=== PATIENT | male | born 1935 | race Caucasian/White ===

== ENCOUNTER → 2019-04-28 08:00 | Outpatient (REF) | payer MEDICARE, SELFPAY ==
[2019-04-28 11:36] LABS: Mucous, Urine 0 SEEN /hpf (<or=2+); Red Blood Cells-Urine 0 SEEN /hpf (0-5); Squamous Epithelial Cells - UA 0 SEEN /hpf (0-5); White Blood Cells 0 SEEN /hpf (0-5)
[2019-04-28 11:41] LABS: Color, Urine Yellow (Yellow); Glucose, Dipstick Normal (Normal); Ketone-Dipstick 15 mg/dl (Negative); Leukocyte Esterase-Dipstick Negative /ul (Negative); Nitrite-Dipstick Negative (Negative); Occult Blood-Urine Negative /ul (Negative); Protein-Dipstick Negative (Negative); Urine Bilirubin Dipstick Negative (Negative); Urine Clarity Sl. Cloudy (Clear); Urine Urobilinogen 1 mg/dl (Normal)
[2019-04-28 12:05] LABS: Bacteria 4+ /hpf (None Seen)
== END ==
LOC: OLS.BROOKB 08:00
PROVIDERS: Visit Provider Family Medicine
DX: N39.0 Urinary tract infection, site not specified (principal)
CPT/HCPCS: 81001

== ENCOUNTER 2019-04-29 21:16 | Inpatient (IN) | payer MEDICARE, SELFPAY ==
[2019-04-29 21:17] VITALS: BP 151/63; PULSE 73; RESP 15; TEMP 36.8; O2SAT 97; BMI 21.9
--- NOTE | 2019-04-29 21:25 | CT_ITS ---
STUDY: CT BRAIN WITHOUT CONTRAST REASON FOR EXAM: Male, 84 years old. Confusion and dementia RADIATION DOSAGE (If Supplied By Facility): CTDIvol = ( 44.99 ) mGy, DLP = ( 863.60 ) mGycm TECHNIQUE: Transaxial CT imaging of the brain was performed without administration of intravenous contrast material. Individualized dose optimization techniques were used for this CT. COMPARISON: No relevant priors. FINDINGS: Normal soft tissue structures. Normal calvarium. Calcification of cavernous carotids. Moderate atrophy and periventricular white matter ischemic changes.. Normal basal ganglia and thalami. Normal brainstem. Normal cerebellum. There is asymmetrically increased attenuation of the right middle cerebral artery suggesting thrombosis and could be due to acute infarct. There is no intracranial hemorrhage. There are no findings of an acute ischemic infarction. There are postsurgical changes of the orbits. Mucosal thickening of the right maxillary ethmoid and frontal sinuses. Mild mucosal thickening in the left maxillary sinus CT/Brain/Head without Contrast IMPRESSION: Asymmetrically increased attenuation of the right middle cerebral artery suggesting thrombosed vessel and may be seen with acute infarct. MRI would be helpful for more definitive evaluation if indicated Moderate atrophy and periventricular white matter ischemic changes. No evidence for acute bleed Electronically Signed: Dhaval Orourke MD at 22:36 EST , Service support ,
--- NOTE | 2019-04-29 21:26 | EKG12_ITS ---
Test Reason : DYSRHYTHMIA Blood Pressure : / mmHG Vent. Rate : 060 BPM Atrial Rate : 060 BPM P-R Int : 200 ms QRS Dur : 154 ms QT Int : 476 ms P-R-T Axes : 070 -64 038 degrees QTc Int : 476 ms Normal sinus rhythm Right bundle branch block Left anterior fascicular block Bifascicular block Minimal voltage criteria for LVH, may be normal variant Abnormal ECG Confirmed by ANDRIY BELL, SHARAD ([id number]), video effects editor RICHAR RUSS ([id number]) on 04/30/2019 11:06:45 AM Referred By: Percy Kumar Confirmed By:SHARAD ASHRAF MD
--- NOTE | 2019-04-29 21:29 | ED.RN ---
NO OLD EKGS IN MUSE
--- NOTE | 2019-04-29 21:41 | ED.VIS.GEN ---
History of Present Illness Chief Complaint: Mental Status Change Informant: Patient Onset: Days Context: Gradual Onset Timing: Continuous Current Severity: Moderate Maximum Severity: Moderate Narrative: The patient presents to the emergency department with confusion. The patient is an 84-year-old male with history of dementia with behavioral disturbance. He is currently at the [facility] dementia unit. He was admitted to a psychiatric facility in early March. He was discharged to [facility] on April 01. They have been titrating his medications. He has been on Depakote and olanzapine. Apparently over the past week, he has been more confused and having difficulty with treatments. He is also had difficulty feeding himself, dressing himself, and has an unstable gait. He was sent in for further evaluation. The patient gives no history. Prior similar symptoms: No Recent Illness/Hospitalization: No Past Medical History - Allergies and Home Meds Allergies/Adverse Reactions: Allergies No Known Allergies Allergy (Verified 04/29/19 22:13) Primary Care Physician: NOT,DEFINED [NON-STAFF] - Prior records reviewed: Yes Past Medical History: - - Dementia, hypertension Surgical History: noncontributory Smoking Status: Unknown if ever smoked Review of Systems ROS: Unable to Obtain Physical Exam Vital Signs/Narrative: Vital Signs Temp Pulse Resp BP Pulse Ox 04/29/19 21:17 98.2 F 73 15 151/63 H 97 General: Well nourished, Well developed, No Acute Distress Head: Normocephalic, Atraumatic Eyes: Perrl, EOMI ENT: Moist mucous membranes, No rhinorrhea Neck: Supple, Nontender Cardiovascular: Regular rate, Regular rhythm, No murmurs Respiratory: No distress, CTA bilaterally, Chest nontender Abdomen: Soft, Nontender, Nondistended, Normal bowel sounds Back: Nontender, Normal Inspection Extremities: Nontender, No edema Skin: Normal color, No rash Neurological: Alert, Cranial nerves II-XII grossly intact, Normal Strength, Normal Sensation Psychological: Normal affect, Normal Mood Diagnostic/Tx/Re-eval Clinical Impression(s) from Imaging Studies Brain CT 04/29/19 21:25 IMPRESSION: Asymmetrically increased attenuation of the right middle cerebral artery suggesting thrombosed vessel and may be seen with acute infarct. MRI would be helpful for more definitive evaluation if indicated Moderate atrophy and periventricular white matter ischemic changes. No evidence for acute bleed Electronically Signed: Dhaval Orourke MD at 22:36 EST , Service support , Abnormal Lab Results 04/29/19 04/29/19 04/29/19 22:00 22:05 22:05 WBC 7.4 RBC 4.01 L Hgb 12.4 L Hct 38.0 L MCV 94.8 H MCH 30.9 MCHC 32.6 RDW Std Deviation 43.3 RDW Coeff of [place] 12.6 Plt Count 294 MPV 8.9 Immature Gran % (Auto) 0.400 Neut % (Auto) 75.6 H Lymph % (Auto) 13.6 L [place] % (Auto) 9.6 Eos % (Auto) 0.5 Baso % (Auto) 0.3 Absolute Neuts (auto) 5.6 Absolute Lymphs (auto) 1.00 Nucleated RBC % 0 Sodium 141 Potassium 4.0 Chloride 105 Carbon Dioxide 31.0 Anion Gap 5 BUN 25 H Creatinine 1.18 Estim Creat Clear Calc 50.11 Est GFR (MDRD) Af Amer 75 Est GFR (MDRD) Non-Af 62 BUN/Creatinine Ratio 21.2 H Glucose 97 Calcium 8.8 Total Bilirubin 0.80 AST 16 ALT 15 L Alkaline Phosphatase 52 Ammonia Total Protein 6.7 Albumin 3.1 L Globulin 3.6 Albumin/Globulin Ratio 0.9 Urine Color Yellow Urine Clarity Cloudy Urine pH 5.0 Ur Specific [place] 1.025 Urine Protein 30 H Urine Glucose (UA) Normal Urine Ketones 15 H Urine Occult Blood 250 H Urine Nitrite Negative Urine Bilirubin Negative Urine Urobilinogen 1 H Ur Leukocyte Esterase 500 H Urine RBC 10-25 SEEN Urine WBC 25-50 SEEN Ur Squamous Epith Cells 0 SEEN Urine Bacteria RARE Urine Mucus 1+ Valproic Acid 04/29/19 04/29/19 22:05 22:05 WBC RBC Hgb Hct MCV MCH MCHC RDW Std Deviation RDW Coeff of [place] Plt Count MPV Immature Gran % (Auto) Neut % (Auto) Lymph % (Auto) [place] % (Auto) Eos % (Auto) Baso % (Auto) Absolute Neuts (auto) Absolute Lymphs (auto) Nucleated RBC % Sodium Potassium Chloride Carbon Dioxide Anion Gap BUN Creatinine Estim Creat Clear Calc Est GFR (MDRD) Af Amer Est GFR (MDRD) Non-Af BUN/Creatinine Ratio Glucose Calcium Total Bilirubin AST ALT Alkaline Phosphatase Ammonia < 10.0 L Total Protein Albumin Globulin Albumin/Globulin Ratio Urine Color Urine Clarity Urine pH Ur Specific [place] Urine Protein Urine Glucose (UA) Urine Ketones Urine Occult Blood Urine Nitrite Urine Bilirubin Urine Urobilinogen Ur Leukocyte Esterase Urine RBC Urine WBC Ur Squamous Epith Cells Urine Bacteria Urine Mucus Valproic Acid 44 L - Rhythm Strip Rhythm Strip: Sinus Rhythm Rate: 80 Ectopy: None - Medical Decision Making The patient presents with increasing confusion and weakness. He does have some difficulty with word finding, but his NIH is only 1 for this. He has no focal neurologic symptoms. This is more metabolic in nature as it does wax and wane. Broad metabolic work-up was pursued. The patient does have evidence of urinary tract infection. Otherwise, screening labs are unremarkable. CT of the head showed questionable thrombosis of the right MCA, but the patient does not have any significant stroke symptoms. He is also comfort care only. CTA was obtained. It does show occlusion of the carotid, but there is reconstitution distally. There is no acute occlusion there. There was also findings of an occlusion in the subclavian artery. The patient does not have pain. At this point, I do feel that he should be admitted for IV antibiotics and consultation with physical therapy and Occupational Therapy. He has had increasing falls at his facility. He will likely need a higher level of care. I did speak with the patient's daughter, Rachel, who is also his healthcare power of flatwork finisher hand. She did confirm that he would not want anything invasive or aggressive done. She states that he has had a vascular surgery before and reoccluded his surgery. I do feel that this is likely a chronic finding on his CT. Based on the family's wishes and the fact that he would not want any aggressive or invasive treatment I do feel that he can safely be admitted here especially given his goals of care. Impression 1. Acute delirium 2. Urinary tract infection ED Disposition - Plan for ED Patient: Referrals: NOT,DEFINED [NON-STAFF] -
[2019-04-29 22:16] LABS: Squamous Epithelial Cells - UA 0 SEEN /hpf (0-5)
[2019-04-29 22:19] LABS: Absolute Neutrophil Count 5.6 X10^3/uL (2.0-7.7); Basophil# 0.02 X10^3/uL; Basophil% 0.3 % (0-1); Eosinophil# 0.04 X10^3/uL; Eosinophils% 0.5 % (0-5); Hemoglobin 12.4 g/dL (13.0-16.5); Lymphocyte % 13.6 % (19-41); Mean Corp Hgb Conc 32.6 g/dL (32-36); Mean Corpuscular Hgb 30.9 pg (27.0-32.0); Mean Corpuscular Volume 94.8 fL (80-94); Mean Platelet Vol. 8.9 fl (6.2-12.0); Monocyte# 0.71 X10^3/uL; Monocyte% 9.6 % (0-10); NRBC Flagged by Analyzer 0 % (0-5); Neutrophil # 5.57 X10^3/uL (2.7-7.7); Neutrophil % 75.6 % (47-70); Platelet Count 294 K/mm3 (150-450); RBC Distribution Width CV 12.6 % (11.6-14.6); RBC Distribution Width SD 43.3 fl (35.1-43.9); Red Blood Count 4.01 M/mm3 (4.6-6.2); White Blood Count 7.4 K/mm3 (4.4-11.0)
[2019-04-29 22:22] LABS: Color, Urine Yellow (Yellow); Glucose, Dipstick Normal (Normal); Ketone-Dipstick 15 mg/dl (Negative); Leukocyte Esterase-Dipstick 500 /ul (Negative); Nitrite-Dipstick Negative (Negative); Occult Blood-Urine 250 /ul (Negative); Protein-Dipstick 30 mg/dl (Negative); Specific Gravity, Urine 1.025 (1.002-1.030); Urine Bilirubin Dipstick Negative (Negative); Urine Clarity Cloudy (Clear); Urine Urobilinogen 1 mg/dl (Normal)
[2019-04-29 22:30] LABS: Red Blood Cells-Urine 10-25 SEEN /hpf (0-5)
[2019-04-29 22:31] LABS: Bacteria RARE /hpf (None Seen); Mucous, Urine 1+ /hpf (<or=2+); White Blood Cells 25-50 SEEN /hpf (0-5)
--- NOTE | 2019-04-29 22:40 | CT_ITS ---
STUDY: CTA HEAD AND NECK WITH CONTRAST REASON FOR EXAM: Male, 84 years old. Confusion, possible right MCA occlusion on prior head CT RADIATION DOSAGE (If Supplied By Facility): CTDIvol = ( 17.47 ) mGy, DLP = ( 826.46 ) mGycm TECHNIQUE: CT angiography was performed with a multi-detector CT scanner. Data acquisition was obtained from the skull base through the vertex following intravenous administration of IV 100mL [id number]-370. MIP images were reconstructed from the axial data set. Post-processing of the angiographic images was performed, with multiplanar reformation and 3D reconstruction. Individualized dose optimization techniques were used for this CT. COMPARISON: CT same day FINDINGS: Chronic interstitial lung changes without superimposed acute alveolar disease. The petrous and cavernous segments of the left ICA are occluded. There is reconstitution of flow at the level of the supraclinoid segment. Normal right A1 segments of the anterior cerebral artery. Normal left A1 segments of the anterior cerebral artery. Normal intact anterior communicating artery (ACOM). Normal bilateral A2 segments of the anterior cerebral arteries. Normal right M1 and M2 segments of the middle cerebral arteries, with a normal M1 bifurcation. Normal left M1 and M2 segments of the middle cerebral arteries, with a normal M1 bifurcation. There is non-visualization of the right posterior communicating artery (PCOM). There is non-visualization of the left posterior communicating artery (PCOM). Normal bilateral vertebral arteries. Normal basilar artery with a normal basilar bifurcation. The visualized bilateral superior cerebellar (SCA) arteries are normal. Normal bilateral P1, P2 and visualized P3 segments of the posterior cerebral arteries. There is no demonstrated aneurysm of the [place] of [place]. Bilateral maxillary and right frontal sinus disease. Bilateral lens replacements. AORTIC ARCH: Normal visualized aortic arch. Heavy concentric mixed soft and calcified plaque is present in the proximal right subclavian artery with a focal near occlusion, with residual lumen diameter of 2 mm and poststenotic diameter 14 mm. RIGHT CAROTID ARTERIES: Normal right common carotid artery (CCA). Heavy concentric calcified plaque in the carotid bulb and proximal ICA with an associated stenosis of less than 50%.. Normal visualized cervical portion of the right internal carotid artery. Normal origin of the right external carotid artery (ECA). LEFT CAROTID ARTERIES: Normal left common carotid artery (CCA). Heavy concentric mixed soft and calcified plaque is present in the carotid bulb. There is occlusion of the left internal carotid artery in the neck. Normal origin of the left external carotid artery (ECA). VERTEBRAL ARTERIES: Normal bilateral vertebral arteries. Median sternotomy wires. Pulmonary emphysema. 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 This occlusion extends to the petrous and cavernous segments of the intracranial ICA on the left. There is reconstitution of flow at the level of the supraclinoid segment. No evidence of occlusion of the right MCA. 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 Electronically Signed: Maksim Gandhi MD at 23:35 EST Tel , Service support ,
[2019-04-29 22:42] LABS: Ammonia < 10.0 umol/L (11-32)
[2019-04-29 22:43] LABS: Valproic Acid (Depakene) Level 44 ug/mL (50-100)
[2019-04-29 22:44] LABS: ALB/GLOB Ratio 0.9 RATIO (0.9-2.4); AST(SGOT) 16 U/L (15-37); Alanine Aminotransfer ALT/SGPT 15 U/L (16-61); Albumin, Serum 3.1 g/dL (3.2-5.0); Alkaline Phosphatase 52 U/L (45-117); Anion Gap 5 (5-15); BUN 25 mg/dL (7-18); BUN/Creat Ratio 21.2 RATIO (10-20); Calcium,Total 8.8 mg/dL (8.5-10.1); Chloride 105 mmol/L (98-107); Creatinine, Serum 1.18 mg/dL (0.70-1.30); EST Glomerular Filtration Rate 62 mL/min (>60); Est Glom Filt Rate - Afr Amer 75 mL/min (>60); Estimated Creatinine Clearance 50.11 ml/min; Globulin 3.6 g/dL (2.2-4.2); Glucose 97 mg/dL (74-106); Protein, Total 6.7 g/dL (6.4-8.2); Sodium Level 141 mmol/L (136-145)
[2019-04-29 23:00] VITALS: BP 170/62; PULSE 63; RESP 20; O2SAT 96
--- NOTE | 2019-04-29 23:40 | HP.PCM_ITS ---
Problem List (1) Acute encephalopathy Status: Acute (2) UTI (urinary tract infection) Status: Acute (3) CVA (cerebral vascular accident) Status: Acute History of Present Illness Date of Admission: 04/29/19 Chief Complaint: increased confusion The patient is a 84 year old M with a significant history of hypertension; CAD status post CABG; carotid artery disease status post carotid endarterectomy and dementia who lives at a behavioral unit at the [facility] presenting with increased confusion. Recently patient had his psych medication adjusted because of confusion. At the Emergency department brain CT was remarkable for a probable acute infarct; and head and neck CTA showed occlusion of entire left ICA. Further his urinalysis was abnormal. Past Medical History Medical History: Medical History (Last Reviewed 04/30/19 @ 04:33 by Percy Kumar MD) CAD (coronary artery disease) I25.10 HTN (hypertension) I10 Allergies No Known Allergies Allergy (Verified 04/29/19 22:13) Home Medications: Ambulatory Orders Medication Instructions Recorded Aspirin 81 mg PO DAILY 04/29/19 Divalproex Sprinkles [Depakote 250 mg PO TID 04/29/19 Sprinkles] Hydrochlorothiazide 25 mg PO DAILY 04/29/19 Lorazepam 0.5 mg PO Q6H PRN PRN 04/29/19 Melatonin [Melatin] 6 mg PO QHS 04/29/19 Olanzapine 1 tab PO QHS 04/29/19 Risperidone 1 tab PO BID 04/29/19 Acetaminophen [Tylenol] 650 mg PO Q4H PRN 04/30/19 Lorazepam [Ativan] 1 mg PO TID PRN PRN 04/30/19 Metoprolol(XL)Succ [Toprol Xl 50 mg PO DAILY 04/30/19 (Beta Vishal)] Surgical History: coronary bypass surgery, - - Carotid endarterectomy Lives: [facility] Smoking Status: Unknown if ever smoked - *Family History Maternal History Items: - - Fairly healthy maternal medical history. Her mother at about age 97. Paternal History Items: Heart Disease Review of Systems Constitutional: Denies: Chills, Fever, Weight Change HEENT: Denies: Head Aches, Sinus Congestion, Sinus Drainage Cardiovascular: Denies: Chest Pain, Palpitations Respiratory: Denies: Cough, Shortness of breath at rest, Sputum production Gastrointestinal: Denies: Abdominal Pain, Nausea, Vomiting Genitourinary: Denies: Dysuria Musculoskeletal: Denies: Joint Pain, Joint Tenderness Skin: Denies: Rash, Wounds Neurological: Reports: Confusion. Denies: Focal weakness, Numbness, Tingling Psychiatric: Denies: Homicidal Ideations, Suicidal Ideations Hematologic/ Lymphatic: Denies: Easy Bruising, Easy Bleeding VTE Information - Inpt Only VTE Present on Admission: No VTE Mechan Device Prophylaxis: None VTE Pharm Prophylaxis ordered?: Yes Patient Problems: Active and Suspected Problems (Last Updated 04/30/19 @ 01:35 by Percy Kumar MD) Acute encephalopathy (Acute) UTI (urinary tract infection) (Acute) CVA (cerebral vascular accident) (Acute) - Physical Exam Vitals/I&O's: Vital Signs Temp Pulse Resp BP Pulse Ox 98.2 F 63 20 H 170/62 H 96 04/29/19 21:17 04/29/19 23:00 04/29/19 23:00 04/29/19 23:00 04/29/19 23:00 Oxygen Delivery Method Room Air Weight: 77.4 kg Body Mass Index (BMI) 21.9 Intake and Output for Last 24 Hours 04/27/19 04/28/19 04/29/19 23:59 23:59 23:59 Intake Total 500 / 500 Balance 500 / 500 General: Alert, Confused HEENT: Atraumatic, EOMI, Normocephalic, - Neck: Supple, Trachea Midline Lungs: Clear to auscultation, Normal air movement, No rhonchi, No wheeze, No rales Cardiovascular: Regular rate, Regular Rhythm, Normal S1, Normal S2, No murmurs Abdomen: Bowel Sounds Present, Soft, Non Tender Extremities: Capillary Refill Less than 3 Seconds, Edema Skin: No rashes, No breakdown Musculoskeletal: No Tenderness to Palpation of Joints or Extremities Neurological: Cranial nerves II-XII grossly intact Psych/Mental Status: Normal Affect, Appropriate Laboratory Results 04/29/19 22:00: Urine Color Yellow, Urine Clarity Cloudy, Urine pH 5.0, Ur Specific [place] 1.025, Urine Protein 30 H, Urine Glucose (UA) Normal, Urine Ketones 15 H, Urine Occult Blood 250 H, Urine Nitrite Negative, Urine Bilirubin Negative, Urine Urobilinogen 1 H, Ur Leukocyte Esterase 500 H, Urine RBC 10-25 SEEN, Urine WBC 25-50 SEEN, Ur Squamous Epith Cells 0 SEEN, Urine Bacteria RARE, Urine Mucus 1+ 04/29/19 22:05: WBC 7.4, RBC 4.01 L, Hgb 12.4 L, Hct 38.0 L, MCV 94.8 H, MCH 30.9, MCHC 32.6, RDW Std Deviation 43.3, RDW Coeff of [place] 12.6, Plt Count 294, MPV 8.9, Immature Gran % (Auto) 0.400, Neut % (Auto) 75.6 H, Lymph % (Auto) 13.6 L, [place] % (Auto) 9.6, Eos % (Auto) 0.5, Baso % (Auto) 0.3, Absolute Neuts (auto) 5.6, Absolute Lymphs (auto) 1.00, Nucleated RBC % 0 04/29/19 22:05: Sodium 141, Potassium 4.0, Chloride 105, Carbon Dioxide 31.0, Anion Gap 5, BUN 25 H, Creatinine 1.18, Estim Creat Clear Calc 50.11, Est GFR (MDRD) Af Amer 75, Est GFR (MDRD) Non-Af 62, BUN/Creatinine Ratio 21.2 H, Glucose 97, Calcium 8.8, Total Bilirubin 0.80, AST 16, ALT 15 L, Alkaline Phosphatase 52, Total Protein 6.7, Albumin 3.1 L, Globulin 3.6, Albumin/Globulin Ratio 0.9 04/29/19 22:05: Valproic Acid 44 L 04/29/19 22:05: Ammonia < 10.0 L Current Medications Ceftriaxone Sodium (Rocephin) 1 gm in 50 mls @ 100 mls/hr IV X1 ONE Stop: 04/29/19 23:59 Assessment/Plan All Active Problems (Last Updated 04/30/19 @ 01:35 by Percy Kumar MD) Acute encephalopathy (Acute) UTI (urinary tract infection) (Acute) CVA (cerebral vascular accident) (Acute) The patient is a 84 year old M with a significant history of hypertension; CAD status post CABG; carotid artery disease status post carotid endarterectomy and dementia who lives at a behavioral unit at the [facility] presenting with increased confusion; and found to have radiographic suggestive of acute infarct and also with abnormal urinalysis Acute encephalopathy Ammonia is unremarkable Likely secondary to UTI and CVA. Treatment as below. Acute UTI Patient with confusion and abnormal urinalysis. Received ceftriaxone at the emergency department. Continue ceftriaxone. Follow urine cultures. Acute stroke Brain CT showed asymmetrical increased attenuation of the right middle cerebral artery suggesting thrombosed vessel and suggestive of acute infarct. Head and neck CT showed occlusion of the entire left ICA in the neck. Emergency depa rtment doctor discussed the case with Rachel Gallegos, daughter, CHRISTOPHER ([phone]) who did not want patient transferred to a tertiary institution as the patient would not want any vascular interventions. Hospitalist also discussed the case with Kaylene Gallegos who confirmed that patient is a DNR CC and patient should be treated only medically. Frequent NIH We will continue patient on home aspirin and will start patient on atorvastatin. Permissive hypertension with labetalol. We will get an echocardiogram. MRI not ordered at this time since a CT head and CTA head and neck is already suggestive of acute infarct. Permissive hypertension with labetalol as needed. Hold hydrochlorothiazide and metoprolol. PT OT and speech therapy to work with patient. N.p.o. until patient passes swallow eval. Psychotic disorder Olanzapine; risperidone; Depakote and Lorazepam continued DVT prophylaxis Subcutaneous Lovenox Code Visit Inpatient E&M: 43404 Init Hosp L3
[2019-04-29] MEDS: Ceftriaxone 1 GM/50 ML BAG IV (23:47)
[2019-04-30] VITALS (11 sets, daily range): BP systolic 114–146; BP diastolic 54–79; PULSE 59–97; RESP 14–18; TEMP 36.4–36.8; O2SAT 94–99; BMI 19.1
--- NOTE | 2019-04-30 01:30 | VDLE_ITS ---
Reason For Study: Swelling RIGHT LEFT GSV is normal. GSV is normal. CFV is compressible, spontaneous, phasic, CFV is compressible, spontaneous, phasic, competent and demonstrates normal competent, and demonstrates normal augmentation. augmentation. FV is compressible, spontaneous, phasic, FV is compressible, spontaneous, phasic, competent and demonstrates normal competent and demonstrates normal augmentation. augmentation. POP V is compressible, spontaneous, phasic, POP V is compressible, spontaneous, phasic, competent and demonstrates normal competent and demonstrates normal augmentation. augmentation. T/P Trunk is compressible. T/P Trunk is compressible. PTV is compressible. PTV is compressible. RT PerV is compressible. LT PerV is compressible. Procedure Exam performed portable in patient room. A preliminary report was called and/or faxed to [facility] Nurse. Interpretation Summary No evidence for acute deep venous thrombosis bilateral lower extremities with patent and compressible bilateral great saphenous veins. Ordering Physician: Percy Kumar Referring Physician: Ericka Person M.D. Performed By: Shirley Osei RVT
--- NOTE | 2019-04-30 01:35 | ED.RN ---
[facility] UPDATED ABOUT PT AT [phone].
[2019-04-30] MEDS: LORazepam 0.5 MG Tablet 1 MG PO (02:01)
[2019-04-30] MEDS: Atorvastatin Calcium 40 MG Tablet PO ×2 (02:02→22:00)
[2019-04-30] MEDS: Divalproex Sodium 125 MG SPRINKLE 250 MG PO ×2 (06:16→22:00)
[2019-04-30 06:34] LABS: Absolute Neutrophil Count 5.1 X10^3/uL (2.0-7.7); Basophil# 0.03 X10^3/uL; Basophil% 0.4 % (0-1); Eosinophil# 0.07 X10^3/uL; Hematocrit 38.3 % (40-54); Hemoglobin 12.5 g/dL (13.0-16.5); Lymphocyte % 14.5 % (19-41); Mean Corp Hgb Conc 32.6 g/dL (32-36); Mean Corpuscular Hgb 30.6 pg (27.0-32.0); Mean Corpuscular Volume 93.6 fL (80-94); Mean Platelet Vol. 9.6 fl (6.2-12.0); Monocyte% 10.2 % (0-10); NRBC Flagged by Analyzer 0 % (0-5); Neutrophil # 5.06 X10^3/uL (2.7-7.7); Neutrophil % 73.5 % (47-70); POSITIVE COUNT YES; Platelet Count 267 K/mm3 (150-450); RBC Distribution Width CV 12.7 % (11.6-14.6); RBC Distribution Width SD 43.6 fl (35.1-43.9); Red Blood Count 4.09 M/mm3 (4.6-6.2); White Blood Count 6.9 K/mm3 (4.4-11.0)
[2019-04-30 06:37] LABS: Differential Indicated SCAN CRITERIA MET
[2019-04-30 06:57] LABS: Anion Gap 5 (5-15); BUN 18 mg/dL (7-18); BUN/Creat Ratio 22.6 RATIO (10-20); Calcium,Total 8.5 mg/dL (8.5-10.1); Chloride 106 mmol/L (98-107); Cholesterol 149 mg/dL (200); EST Glomerular Filtration Rate 98 mL/min (>60); Est Glom Filt Rate - Afr Amer 119 mL/min (>60); Estimated Creatinine Clearance 71.52 ml/min; Glucose 87 mg/dL (74-106); High Density Lipoprotein 40 mg/dL; Potassium 3.9 mmol/L (3.5-5.1); Sodium Level 140 mmol/L (136-145); Triglycerides 105 mg/dL; Very Low Density Lipoprotein 21 mg/dL (5-40)
[2019-04-30 07:11] LABS: Differential Comment SCANNED
[2019-04-30] MEDS: Enoxaparin 40 MG/0.4 ML Syringe SC (10:18)
--- NOTE | 2019-04-30 16:51 | PCM.PROGNOTE ---
Subjective: Patient was seen and examined today, he was admitted yesterday for encephalopathy and cystitis, at the time my examination this afternoon, patient appears calm and he does not have any agitation. He remains confused. - Physical Exam Vitals/I&O's: Vital Signs Temp Pulse Resp BP Pulse Ox 97.8 F 69 16 114/69 96 04/30/19 14:00 04/30/19 15:16 04/30/19 14:00 04/30/19 14:00 04/30/19 14:00 Oxygen Delivery Method Room Air Weight: 74.9 kg Body Mass Index (BMI) 19.1 Intake and Output for Last 24 Hours 04/28/19 04/29/19 04/30/19 23:59 23:59 23:59 Intake Total 500 / 500 150 / 150 Balance 500 / 500 150 / 150 General: Alert, Cooperative, No apparent distress, Confused HEENT: Atraumatic, PERRLA, EOMI, Normocephalic Oral: Moist Mucosa Neck: Supple, Trachea Midline, Thyroid Normal Size and Texture Lungs: Clear to auscultation, Normal air movement, No rhonchi, No wheeze, No rales Cardiovascular: Regular rate, Regular Rhythm, Normal S1, Normal S2, No murmurs, PMI Normal, No rub noted Abdomen: Bowel Sounds Present, Soft, Non Tender Extremities: No clubbing, No cyanosis, No edema, Capillary Refill Less than 3 Seconds Skin: No rashes, No breakdown Musculoskeletal: No Tenderness to Palpation of Joints or Extremities Neurological: Cranial nerves II-XII grossly intact, Neuro grossly intact, Sensory exam intact to light touch and pain Psych/Mental Status: - - Patient is alert but confused, he does not appear anxious or agitated at this time Laboratory Results 04/29/19 22:00: Urine Color Yellow, Urine Clarity Cloudy, Urine pH 5.0, Ur Specific [place] 1.025, Urine Protein 30 H, Urine Glucose (UA) Normal, Urine Ketones 15 H, Urine Occult Blood 250 H, Urine Nitrite Negative, Urine Bilirubin Negative, Urine Urobilinogen 1 H, Ur Leukocyte Esterase 500 H, Urine RBC 10-25 SEEN, Urine WBC 25-50 SEEN, Ur Squamous Epith Cells 0 SEEN, Urine Bacteria RARE, Urine Mucus 1+ 04/29/19 22:05: WBC 7.4, RBC 4.01 L, Hgb 12.4 L, Hct 38.0 L, MCV 94.8 H, MCH 30.9, MCHC 32.6, RDW Std Deviation 43.3, RDW Coeff of Calixto 12.6, Plt Count 294, MPV 8.9, Immature Gran % (Auto) 0.400, Neut % (Auto) 75.6 H, Lymph % (Auto) 13.6 L, [place] % (Auto) 9.6, Eos % (Auto) 0.5, Baso % (Auto) 0.3, Absolute Neuts (auto) 5.6, Absolute Lymphs (auto) 1.00, Nucleated RBC % 0 04/29/19 22:05: Sodium 141, Potassium 4.0, Chloride 105, Carbon Dioxide 31.0, Anion Gap 5, BUN 25 H, Creatinine 1.18, Estim Creat Clear Calc 50.11, Est GFR (MDRD) Af Amer 75, Est GFR (MDRD) Non-Af 62, BUN/Creatinine Ratio 21.2 H, Glucose 97, Calcium 8.8, Total Bilirubin 0.80, AST 16, ALT 15 L, Alkaline Phosphatase 52, Total Protein 6.7, Albumin 3.1 L, Globulin 3.6, Albumin/Globulin Ratio 0.9 04/29/19 22:05: Valproic Acid 44 L 04/29/19 22:05: Ammonia < 10.0 L 04/30/19 05:55: WBC 6.9, RBC 4.09 L, Hgb 12.5 L, Hct 38.3 L, MCV 93.6, MCH 30.6, MCHC 32.6, RDW Std Deviation 43.6, RDW Coeff of Calixto 12.7, Plt Count 267, MPV 9.6, Immature Gran % (Auto) 0.400, Neut % (Auto) 73.5 H, Lymph % (Auto) 14.5 L, [place] % (Auto) 10.2 H, Eos % (Auto) 1.0, Baso % (Auto) 0.4, Absolute Neuts (auto) 5.1, Absolute Lymphs (auto) 1.00, Nucleated RBC % 0, Differential Comment SCANNED 04/30/19 05:55: Sodium 140, Potassium 3.9, Chloride 106, Carbon Dioxide 29.0, Anion Gap 5, BUN 18, Creatinine 0.80, Estim Creat Clear Calc 71.52, Est GFR (MDRD) Af Amer 119, Est GFR (MDRD) Non-Af 98, BUN/Creatinine Ratio 22.6 H, Glucose 87, Calcium 8.5, Triglycerides 105, Cholesterol 149, LDL Cholesterol 88, VLDL Cholesterol 21, HDL Cholesterol 40 Current Medications Acetaminophen (Tylenol) 650 mg PO Q6H PRN PRN PRN Reason: Pain Score 1-3/Temp > 100.7 F Aspirin (Aspirin, Baby) 81 mg PO DAILYCM [facility] Last Admin: 04/30/19 10:13 Dose: Not Given Documented by: Atorvastatin Calcium (Lipitor) 40 mg PO QHS [facility] Last Admin: 04/30/19 02:02 Dose: 40 mg Documented by: Divalproex Sodium (Depakote Sprinkles) 250 mg PO TID [facility] Last Admin: 04/30/19 13:37 Dose: Not Given Documented by: Enoxaparin Sodium (Lovenox) 40 mg SC DAILY [facility] Last Admin: 04/30/19 10:18 Dose: 40 mg Documented by: Glucagon () 1 mg IM .X1 PRN PRN Reason: Hypoglycemia Ceftriaxone Sodium (Rocephin) 1 gm in 50 mls @ 100 mls/hr IV Q24H [place] Sodium Chloride () 250 mls @ 15 mls/hr IV .[id number] PRN PRN Reason: Saline Flush Dextrose (Dextrose 10%-Water) 250 mls @ 999 mls/hr IV X1 PRN; Protocol PRN Reason: HYPOGLYCEMIA Labetalol HCl (Trandate) 10 mg IV Q10M PRN PRN Reason: MAINTAIN BP < 220/120 Stop: 05/01/19 00:49 Lorazepam (Ativan) 0.5 mg PO Q6H PRN PRN PRN Reason: ANXIETY Lorazepam (Ativan) 1 mg PO QHS PRN PRN PRN Reason: ANXIETY Last Admin: 04/30/19 02:01 Dose: 1 mg Documented by: Melatonin (Melatonin) 6 mg PO QHS [facility] Olanzapine (Zyprexa Zydis) 5 mg PO QHS [facility] Ondansetron HCl (Zofran) 4 mg IV Q8H PRN PRN PRN Reason: NAUSEA/VOMITING Risperidone (Risperdal) 0.5 mg PO BID [facility] Last Admin: 04/30/19 10:13 Dose: Not Given Documented by: Sodium Chloride () 10 - 40 ml IV UD PRN PRN Reason: SALINE FLUSH Medical Necessity - Tobacco Use Smoking Status: Unknown if ever smoked Assessment/Plan All Active Problems (Last Reviewed 04/30/19 @ 04:33 by Percy Kumar MD) Acute encephalopathy (Acute) UTI (urinary tract infection) (Acute) CVA (cerebral vascular accident) (Acute) #1 Alzheimer's dementia with behavioral disturbances-etiology unclear at this time, continue present care, I do not feel the patient has had an acute stroke #2 possible urinary tract infection-urine cultures pending at this time, continue IV antibiotics for now #3 essential hypertension I do not feel patient has an encephalopathic process at this time Code Visit Inpatient E&M: 10161 Subs Hosp L2
[2019-04-30] MEDS: LORazepam 0.5 MG Tablet PO (19:33)
[2019-04-30] MEDS: RisperiDONE 0.5 MG Tablet PO (21:59)
[2019-04-30] MEDS: MELATONIN 3 MG TABLET 6 MG PO (21:59)
[2019-04-30] MEDS: OLANZapine 5 MG/TAB TAB.RAPDIS PO (22:00)
[2019-04-30] MEDS: Ceftriaxone 1 GM/50 ML BAG IV (22:00)
[2019-05-01 03:03] VITALS: PULSE 60; RESP 16; TEMP 36.5; O2SAT 97
--- NOTE | 2019-05-01 04:43 | NURSING ---
PT'S SHEETS WERE WET W/URINE. ATTEMPTED TO APPLY INCONT PROTOCOL. PT BECAME COMBATIVE, ATTEMPTED TO HIT STAFF W/TELE MONITOR, SQUEEZED HANDS AND FINGERS OF STAFF MEMBERS. INCONT PROTOCOL APPLIED W/ADDITIONAL STAFF MEMBERS. TELE MONITOR WILL REMAIN OFF PT UNTIL IT IS SAFE TO REAPPLY IT W/O AGGRESSION FROM PT. PT GIVEN WARM BLANKET. BED EXIT TURNED ON. WILL CONTINUE TO MONITOR.
--- NOTE | 2019-05-01 06:10 | NURSING ---
THIS RN REMAINED IN PT'S ROOM FROM [phone] FOR SAFETY.
[2019-05-01] MEDS: Divalproex Sodium 125 MG SPRINKLE 250 MG PO (06:31)
--- NOTE | 2019-05-01 06:37 | NURSING ---
PT CHEWED ONE DEPAKOTE CAPSULE. HE WAS GIVEN THE SECOND CAPSULE AND CHEWED PART OF AND THEN REMOVED THE REMAINING MEDICATION FROM HIS MOUTH. STATES YOU DON'T KNOW WHAT'S GOING ON HERE. I'M NOT DOING IT.
[2019-05-01 08:02] VITALS: O2SAT 96
[2019-05-01 08:19] VITALS: BMI 19.1
[2019-05-01 09:00] VITALS: BP 130/72; PULSE 88; RESP 16; TEMP 36.5; O2SAT 92
[2019-05-01] MEDS: LORazepam 0.5 MG Tablet PO (10:07)
[2019-05-01] MEDS: RisperiDONE 0.5 MG Tablet PO (10:07)
[2019-05-01] MEDS: Aspirin 81 MG TAB.CHEW PO (10:07)
--- NOTE | 2019-05-01 10:20 | CASEMGMT ---
JERRY called [facility] and spoke with patient's RN, Mandi. She said patient is normally very active and always on the go roaming around. Recently his medications were changed. He was aggressively exit seeking. A window was broken in a room he had been in. They suspect it was him. Also, he recently broke a window frame in another room. SW let her know he will likely be heading back today. JERRY faxed her updates. Sindhu FRANCE MSW
--- NOTE | 2019-05-01 11:51 | DCINST_ITS ---
- Discharge Diagnoses Current Active Problems: Current Active and Chronic Problems (Last Reviewed 04/30/19 @ 04:33 by Percy Kumar MD) Acute encephalopathy (Acute) UTI (urinary tract infection) (Acute) CVA (cerebral vascular accident) (Acute) You will use the following diet at home:: No restrictions Your food should be the consistency of: Regular Your liquids should be the consistency of: Regular/Thin Discharge Activity: Return to Normal Activity Weight Bearing Status: Full weight bearing Allergies/Adverse Reactions: Allergies No Known Allergies Allergy (Verified 04/29/19 22:13) Medications to take at Discharge Aspirin 81 mg PO DAILY 04/29/19 Divalproex Sprinkles [Depakote Sprinkles] 250 mg PO TID 04/29/19 Lorazepam 0.5 mg PO Q6H PRN PRN 04/29/19 Melatonin [Melatin] 6 mg PO QHS 04/29/19 Olanzapine 1 tab PO QHS 04/29/19 Acetaminophen [Tylenol] 650 mg PO Q4H PRN 04/30/19 Lorazepam [Ativan] 1 mg PO TID PRN PRN 04/30/19 Metoprolol(XL)Succ [Toprol Xl (Beta Vishal)] 50 mg PO DAILY 04/30/19 Olanzapine [Zyprexa] 2.5 mg PO DAILY #30 tab 05/01/19 The following prescriptions were given: Olanzapine [Zyprexa] 2.5 mg PO DAILY #30 tab Prescription Printed Primary Care Physician: NOT,DEFINED [NON-STAFF] - Test Results: Test results from this visit will be discussed in further detail at your follow- up appointment, if applicable.
--- NOTE | 2019-05-01 12:05 | PHA.DC.MR ---
Pharmacy Service has performed discharge medication reconciliation for this patient prior to transfer to [facility]. The patient's discharge medication list was reviewed for discrepancies and discrepancies were resolved. Home Medications Aspirin 81 mg PO DAILY 04/29/19 Divalproex Sprinkles [Depakote Sprinkles] 250 mg PO TID 04/29/19 Lorazepam 0.5 mg PO Q6H PRN PRN 04/29/19 Melatonin [Melatin] 6 mg PO QHS 04/29/19 Olanzapine 1 tab PO QHS 04/29/19 Acetaminophen [Tylenol] 650 mg PO Q4H PRN 04/30/19 Lorazepam [Ativan] 1 mg PO TID PRN PRN 04/30/19 Metoprolol(XL)Succ [Toprol Xl (Beta Vishal)] 50 mg PO DAILY 04/30/19 Olanzapine [Zyprexa] 2.5 mg PO DAILY #30 tab 05/01/19
--- NOTE | 2019-05-01 12:25 | CASEMGMT ---
JERRY faxed d/c instructions to [facility]. Called [facility] and JERRY just needs to send the prescription with patient. They are not able to pick patient up as their truck driver just left for [place] to take a patient to an appointment and it will be awhile before he returns. JERRY called [facility] and arranged for patient to get picked up at 130 via cot. JERRY notified RN, certified legal secretary specialist, SORTER OPERATOR, and patient's daughter. Plan: d/c back to [facility] dementia unit. [facility] transported patient via cot. Sindhu FRANCE GEOTHERMAL POWERPLANT SUPERVISOR
--- NOTE | 2019-05-01 12:30 | NURSING ---
This RN called and gave report to NGUYEN Elias at [facility].
--- NOTE | 2019-05-01 18:08 | DS.PCM_ITS ---
Discharge Date and Diagnosis Date of Admission: 04/29/19 Date of Discharge: 05/01/19 - Primary Discharge Diagnosis #1 Alzheimer's dementia with behavioral disturbances #2 essential hypertension Urinary tract infection and acute stroke was ruled out Hospital Course and Treatment Operations: None Procedures: None Summary of Care Provided: The patient is a 84 year old M was seen in the emergency room at [facility] after being transferred from assisted living facility at which he resides. Patient has dementia and he became agitated at the facility and was sent to the emergency room at [facility] for evaluation. On evaluation in the emergency room, his NIH stroke score was 1, he had no focal neurological deficits. Patient had a urinalysis performed which showed a possible urinary tract infection with trace bacteria and some white and red blood cells. Screening labs were otherwise unremarkable, patient was afebrile, CT the head showed a questionable thrombosis of the right MCA but the patient did not have any significant stroke symptomology. A conference was carried out with the patient's daughter, she did not want anything invasive performed while the patient was in the hospital, he was admitted to PCU and placed on IV antibiotics and no further imaging studies were ordered. Patient remained confused while in the hospital but was not agitated or aggressive. Patient's urine culture resulted in small numbers of enterococcus which were not felt to be significant. This examiner did not feel that the patient had a urinary tract infection or ischemic stroke. On 05/01/2019, patient was seen and examined: On examination he appeared alert, he was confused but did not appear to be agitated.. Vital signs as documented. Skin warm and dry and without overt rashes. Neck without JVD. Lungs clear. Heart exam notable for regular rhythm, normal sounds and absence of murmurs, rubs or gallops. Abdomen unremarkable and without evidence of organomegaly, masses, or abdominal aortic enlargement. Extremities nonedematous. Neuro: Cranial nerves II through XII are grossly intact, no focal motor deficits were noted, sensation to light touch and pinprick intact. Psych: Patient is alert, he was not agitated I talked at length with his daughter by phone on 05/01/2019, I have adjusted his medications-patient was on 2 different antipsychotics at the same time at assisted living (risperdal and Zyprexa)-I stopped his risperdal on discharge and increased his Zyprexa. I went over this medication change with his daughter. Patient was discharged in stable condition to assisted living on 05/01/2019 - Physical Exam Vitals/I&O's: Vital Signs Temp Pulse Resp BP Pulse Ox 97.7 F L 88 16 130/72 H 92 05/01/19 09:00 05/01/19 09:00 05/01/19 09:00 05/01/19 09:00 05/01/19 09:00 Oxygen Delivery Method Room Air Weight: 74.9 kg Body Mass Index (BMI) 19.1 Intake and Output for Last 24 Hours 04/29/19 04/30/19 05/01/19 23:59 23:59 23:59 Intake Total 500 / 500 498.58 / 498.58 420 / 420 Balance 500 / 500 498.58 / 498.58 420 / 420 Microbiology Past 72 Hours 04/29/19 22:00 Urine, Catheterized Urine Culture - Preliminary GPC Poss Enterococcus sp Discharge Activity: Return to Normal Activity Weight Bearing Status: Full weight bearing Home Medications: Medications to take at Discharge Aspirin 81 mg PO DAILY 04/29/19 Divalproex Sprinkles [Depakote Sprinkles] 250 mg PO TID 04/29/19 Lorazepam 0.5 mg PO Q6H PRN PRN 04/29/19 Melatonin [Melatin] 6 mg PO QHS 04/29/19 Olanzapine 1 tab PO QHS 04/29/19 Acetaminophen [Tylenol] 650 mg PO Q4H PRN 04/30/19 Lorazepam [Ativan] 1 mg PO TID PRN PRN 04/30/19 Metoprolol(XL)Succ [Toprol Xl (Beta Ivshal)] 50 mg PO DAILY 04/30/19 Olanzapine [Zyprexa] 2.5 mg PO DAILY #30 tab 05/01/19 Following Prescrptions Were Given to Patient: Olanzapine [Zyprexa] 2.5 mg PO DAILY #30 tab Prescription Printed Primary Care Physician: NOT,DEFINED [NON-STAFF] - Disposition: Asstd Living/Non-Skill [place] Minutes spent on discharge:: 33 Patient Condition:: Stable Medical Necessity - Tobacco Use Smoking Status: Unknown if ever smoked Meaningful Use Info Meaningful Use Diagnoses (Choose all that apply): None applicable Code Visit Inpatient E&M: 87217 Disch Hosp
== END 2019-05-01 13:34 | disposition home or self-care (01) | DRG 57 ==
LOC: ED 22:19 → PCU 04-30 00:35
PROVIDERS: Admitting Provider Hospitalist; Emergency Provider Emergency Medicine; Family Provider Family Medicine; PCP Family Medicine; Referring Provider Hospitalist; Visit Provider Internal Medicine
DX: G30.9 Alzheimer's disease, unspecified (principal); F02.81 Dementia in other diseases classified elsewhere, unspecified severity, with behavioral disturbance; N39.0 Urinary tract infection, site not specified; Z66 Do not resuscitate; I10 Essential (primary) hypertension; I25.10 Atherosclerotic heart disease of native coronary artery without angina pectoris; Z95.1 Presence of aortocoronary bypass graft
CPT/HCPCS: 36415; 70450; 70496; 70498; 80048; 80053; 80061; 80164; 81001; 82140; 85025; 87077; 87086; 87088; 87186; 92507; 92610; 93005; 93970; 94762; 97116; 97162; 97166; 97530; 97535; 99285; J7030; J7050; P9612; Q9967; A4216

== ENCOUNTER 2019-05-03 16:41 | Inpatient (IN) | payer MEDICARE, SELFPAY ==
[2019-05-03] VITALS (7 sets, daily range): BP systolic 128–152; BP diastolic 62–85; PULSE 68–74; RESP 16–18; TEMP 36.6–37; O2SAT 94–99; BMI 21.6; BMI 20.4; BMI 20.5
--- NOTE | 2019-05-03 17:02 | RAD_ITS ---
STUDY: X-RAY CHEST REASON FOR EXAM: Male, 84 years old. Follow. Preoperative evaluation. TECHNIQUE: Single frontal view of the chest. COMPARISON: None. FINDINGS: Hyperexpansion with diffuse interstitial pattern. There is no demonstrated pleural abnormality. Cardiomegaly with sternotomy wires and changes of coronary artery bypass grafting. Normal mediastinum and myriam. Normal visualized pulmonary arteries. Aortic tortuosity with calcification. Normal visualized thoracic spine. Normal visualized ribs, clavicles, and shoulders. There is no demonstrated abnormality of the visualized soft tissue structures of the upper abdomen. RAD/Chest 1 View (Portable) IMPRESSION: Cardiomegaly with hyperexpansion and diffuse interstitial pattern. No acute finding. Electronically Signed: Jeffrey Wright MD at 18:06 EST , Service support ,
--- NOTE | 2019-05-03 17:03 | EKG12_ITS ---
Test Reason : LOWER EXTREMTY PAIN Blood Pressure : / mmHG Vent. Rate : 069 BPM Atrial Rate : 069 BPM P-R Int : 198 ms QRS Dur : 144 ms QT Int : 434 ms P-R-T Axes : 076 -69 024 degrees QTc Int : 465 ms Normal sinus rhythm Right bundle branch block Left anterior fascicular block Bifascicular block Moderate voltage criteria for LVH, may be normal variant Abnormal ECG Confirmed by MARGARET BELL, NATAN ([id number]), telegraph editor ADAMARIS MCKENZIE ([id number]) on 05/07/2019 12:59:43 PM Referred By: Humera Hyatt Confirmed By:NATAN ROBLES MD
--- NOTE | 2019-05-03 17:03 | RAD_ITS ---
STUDY: X-RAY - PELVIS AND LEFT HIP REASON FOR EXAM: Male, 84 years old. Fall. Pain. TECHNIQUE: 3 views of the pelvis and hip. COMPARISON: None. FINDINGS: There is a non-specific bowel gas pattern. Vascular calcification and phleboliths. Aortoiliac stent. Generalized osteopenia. Normal bilateral iliac wings, sacroiliac joints and visualized sacrum. Normal bilateral superior and inferior pubic rami. Normal pubic symphysis. Normal bilateral ischial tuberosities. Left total hip arthroplasty. Minimally displaced fracture through the base of the greater trochanter of the left hip. Osteoarthrosis of the right hip. RAD/HIP, UNI W/ Pelvis 2-3 Views IMPRESSION: Osteopenia with fracture through the base of the greater trochanter of the left hip adjacent to the left total hip arthroplasty. Electronically Signed: Jeffrey Wright MD at 18:10 EST , Service support ,
[2019-05-03 17:21] LABS: Absolute Lymphocyte Count 0.67 X10^3/uL (0.83-4.51); Absolute Neutrophil Count 9.6 X10^3/uL (2.0-7.7); Basophil# 0.04 X10^3/uL; Basophil% 0.4 % (0-1); Eosinophil# 0.02 X10^3/uL; Eosinophils% 0.2 % (0-5); Hematocrit 42.1 % (40-54); Hemoglobin 13.7 g/dL (13.0-16.5); Lymphocyte # 0.67 X10^3/ul (4.0); Lymphocyte % 5.9 % (19-41); Mean Corp Hgb Conc 32.5 g/dL (32-36); Mean Corpuscular Hgb 30.8 pg (27.0-32.0); Mean Corpuscular Volume 94.6 fL (80-94); Mean Platelet Vol. 9.3 fl (6.2-12.0); Monocyte# 1.07 X10^3/uL; Monocyte% 9.4 % (0-10); NRBC Flagged by Analyzer 0 % (0-5); Neutrophil # 9.55 X10^3/uL (2.7-7.7); Neutrophil % 83.5 % (47-70); Platelet Count 307 K/mm3 (150-450); RBC Distribution Width CV 12.8 % (11.6-14.6); Red Blood Count 4.45 M/mm3 (4.6-6.2); White Blood Count 11.4 K/mm3 (4.4-11.0)
[2019-05-03] MEDS: 0.9% Normal Saline 1,000 ML 250 ML IV (17:24)
[2019-05-03] MEDS: Morphine 2 MG/ML Syringe IV (17:24)
[2019-05-03] MEDS: Ondansetron 4 MG/2 ML Vial IV (17:24)
[2019-05-03 17:25] LABS: International Normalized Ratio 1.2; Prothrombin Time (Protime)PT. 15.1 SECONDS (11.7-14.9)
[2019-05-03 17:26] LABS: Partial Thromboplast Time 29.6 Seconds (24.1-36.2)
[2019-05-03 17:49] LABS: Anion Gap 9 (5-15); BUN 22 mg/dL (7-18); Calcium,Total 9.2 mg/dL (8.5-10.1); Chloride 107 mmol/L (98-107); Creatinine, Serum 1.16 mg/dL (0.70-1.30); EST Glomerular Filtration Rate 64 mL/min (>60); Est Glom Filt Rate - Afr Amer 77 mL/min (>60); Estimated Creatinine Clearance 48.93 ml/min; Glucose 138 mg/dL (74-106); Potassium 4.4 mmol/L (3.5-5.1); Sodium Level 144 mmol/L (136-145)
--- NOTE | 2019-05-03 18:08 | ED.VIS.GEN ---
History of Present Illness Chief Complaint: Lower Extremity Injury Informant: [employer] Limited by: Dementia Onset: - - Not willing to walk the past several days Context: Sudden Onset Timing: Continuous Quality: Will not walk Location: There is confusion based on documentation that accompany patient. Current Severity: - - He does not appear in discomfort lying on the examination cot Maximum Severity: Moderate Worsened by: Logrolling causes discomfort on the left side not the right side. Relieved by: Remaining still Associated Symptoms: Unable to determine Narrative: Is an elderly male with significant dementia who was brought to the ER because of reported right hip fracture on x-ray. Patient unable to contribute with regards to history of physical. He has significant dementia. He is disoriented x3. Prior similar symptoms: No Recent Illness/Hospitalization: No - Past Medical History (1) Acute encephalopathy Status: Acute (2) CVA (cerebral vascular accident) Status: Acute (3) UTI (urinary tract infection) Status: Acute Past Medical History - Allergies and Home Meds Allergies/Adverse Reactions: Allergies No Known Allergies Allergy (Verified 05/03/19 16:51) Surgical History: coronary bypass surgery, - - Carotid endarterectomy Lives: Care Home Smoking Status: Former smoker Alcohol: None Drugs: None - Family History Maternal Family History: Reports: - - Fairly healthy maternal medical history. Her mother at about age 97. Paternal Family History: Reports: Heart Disease Review of Systems ROS: Unable to Obtain Physical Exam Vital Signs/Narrative: Vital Signs Temp Pulse Resp BP Pulse Ox 05/03/19 16:43 97.8 F 68 16 128/85 H 99 Inital Vital Signs reviewed: Yes General: Well developed, Cachectic, No Acute Distress Head: Normocephalic, Atraumatic Eyes: Perrl, EOMI. Negative for: Pale conjunctiva, Scleral icterus ENT: No rhinorrhea, TM's clear Neck: Supple, Nontender, No lymphadenopathy, No JVD Cardiovascular: Regular rate, Regular rhythm, No murmurs, Normal S1, Normal S2 Respiratory: No distress, CTA bilaterally Abdomen: Soft, Nontender, Nondistended, Normal bowel sounds, - - There is no pain to palpation of the pelvis. Rectal: Deferred Back: Nontender, Normal Inspection Extremities: No edema, Tenderness - Logrolling left groin. Negative for: Nontender Skin: Normal color, No rash, No Trauma. Negative for: Cyanosis, Diaphoresis, Jaundice Neurological: Cranial nerves II-XII grossly intact, Normal Strength. Negative for: Alert, Oriented x3, Normal Gait Psychological: - - Flat Diagnostic/Tx/Re-eval Chest X-Ray - ED: 2 View, Read by ED Physician, Normal, Heart, Bony Structures, No Acute Disease, Chronic Changes, - - Lateral chronic interstitial changes. 3 view x-ray of the left hip reveals an intertrochanteric fracture. Patient's had a prior left total hip arthroplasty. Impressions Chest X-Ray 05/03/19 17:02 IMPRESSION: Cardiomegaly with hyperexpansion and diffuse interstitial pattern. No acute finding. Electronically Signed: Jeffrey Wright MD at 18:06 EST , Service support , 05/03/19 17:02 Chest 1 View (Portable) [RAD] Stat 05/03/19 17:03 HIP, UNI W/ Pelvis 2-3 Views [RAD] Stat Laboratory Results 05/03/19 05/03/19 05/03/19 16:50 16:50 16:50 WBC 11.4 H RBC 4.45 L Hgb 13.7 Hct 42.1 MCV 94.6 H MCH 30.8 MCHC 32.5 RDW Std Deviation 44.0 H RDW Coeff of Calixto 12.8 Plt Count 307 MPV 9.3 Immature Gran % (Auto) 0.600 Neut % (Auto) 83.5 H Lymph % (Auto) 5.9 L [place] % (Auto) 9.4 Eos % (Auto) 0.2 Baso % (Auto) 0.4 Absolute Neuts (auto) 9.6 H Absolute Lymphs (auto) 0.67 L Nucleated RBC % 0 PT 15.1 H INR 1.2 APTT 29.6 Sodium 144 Potassium 4.4 Chloride 107 Carbon Dioxide 28.0 Anion Gap 9 BUN 22 H Creatinine 1.16 Estim Creat Clear Calc 48.93 Est GFR (MDRD) Af Amer 77 Est GFR (MDRD) Non-Af 64 BUN/Creatinine Ratio 19.0 Glucose 138 H Calcium 9.2 - Rhythm Strip Rhythm Strip: Sinus Rhythm Rate: 71 - EKG Initial EKG Interpretation: Sinus Rhythm - Sinus rhythm with a ventricular rate of 69. IA interval 298 ms. QRS duration is 144 ms with pattern consistent with right bundle branch block. There is also evidence of a left anterior fascicular block. QT duration 434 ms. [place] is to the left. - Medical Decision Making On examination patient has a fracture on the left side. X-ray was obtained and reveals an nondisplaced intertrochanteric fracture. The prosthetic hip is in place. Chest x-ray was chronic changes. Blood work is unremarkable. In light of x-ray findings the orthopedist was paged to discuss case and determine best treatment for patient. ED Disposition - Plan for ED Patient: Disposition: Acute Care Hospital [facility] Diagnosis: Nondisplaced intertrochanteric fracture of left femur, initial encounter for closed fracture
--- NOTE | 2019-05-03 20:03 | PCM.HP.STD ---
Problem List (1) Hip fracture Status: Acute Qualifiers: Encounter type: initial encounter Fracture type: closed Laterality: left Qualified Code(s): S72.002A - Fracture of unspecified part of neck of left femur, initial encounter for closed fracture History of Present Illness Date of Admission: 05/03/19 Chief Complaint: pt wouldn't walk or stand The patient is a 84 year old M who presented to the ED at [facility] on the evening of 05/03/19 2/2 to the pt's unwillingness to stand, walk, or put weight on his LLE for the past several days. An x-ray of that hip was performed in the ED and a L minimally displaced fracture through the base of the L greater trochanter adjacent to the TKA was found and osteopenia was noted. Pt is A&O only to self and is here alone at this time. Past Medical History Medical History: Medical History (This Medical Record has been edited. Action required.) CAD (coronary artery disease) I25.10 HTN (hypertension) I10 Allergies No Known Allergies Allergy (Verified 05/03/19 16:51) Home Medications: Ambulatory Orders Medication Instructions Recorded Aspirin 81 mg PO DAILY 04/29/19 Divalproex Sprinkles [Depakote 250 mg PO TID 04/29/19 Sprinkles] Lorazepam 0.5 mg PO Q8H PRN 04/29/19 Melatonin [Melatin] 6 mg PO QHS 04/29/19 Olanzapine 1 tab PO QHS 04/29/19 Acetaminophen [Tylenol] 650 mg PO Q4H PRN 04/30/19 Lorazepam [Ativan] 1 mg PO TID PRN PRN 04/30/19 Metoprolol(XL)Succ [Toprol Xl 50 mg PO DAILY 04/30/19 (Beta Vishal)] Hydrochlorothiazide [Hctz] 25 mg PO DAILY 05/03/19 Polyethylene Glycol 3350 [Miralax] 17 gm PO BID PRN 05/03/19 Risperidone [Risperdal] 0.5 mg PO BID 05/03/19 Surgical History: coronary bypass surgery, total hip arthroplasty, - - Carotid endarterectomy Psychiatric History: - - dementia with behavior disorder Lives: Group Home Smoking Status: Former smoker Alcohol: None Drugs: None - *Family History Maternal History Items: - - Fairly healthy maternal medical history. Her mother at about age 97. Paternal History Items: Heart Disease Review of Systems Unable to obtain accurate/complete ROS d/t: Unable 2/2 severe dementia-pt A&O x self only VTE Information - Inpt Only VTE Present on Admission: No VTE Mechan Device Prophylaxis: SCD's VTE Pharm Prophylaxis ordered?: Yes Patient Problems: Active and Suspected Problems (This Medical Record has been edited. Action required.) Hip fracture (Acute) - Physical Exam Vitals/I&O's: Vital Signs Temp Pulse Resp BP Pulse Ox 97.8 F 68 16 128/85 H 99 05/03/19 16:43 05/03/19 16:43 05/03/19 18:42 05/03/19 16:43 05/03/19 16:43 Oxygen Delivery Method Room Air Weight: 74.3 kg Body Mass Index (BMI) 21.6 General: Alert, Cooperative, Confused, Disoriented HEENT: Atraumatic, PERRLA, EOMI, Normocephalic Oral: Moist Mucosa, No Gingival or Mucosal Lesions/ Ulcerations, - - fair dentition Neck: Supple, No JVD, Negative Carotid Bruits, Negative Hepatojugular Reflux, No Nodes, No Nuchal Rigidity, Trachea Midline, Thyroid Normal Size and Texture, - - well healed CEA scars Lungs: Clear to auscultation, No rhonchi, No wheeze, No rales, Diminished - throughout Cardiovascular: Regular rate, Regular Rhythm, Normal S1, Normal S2, Murmur - 2/6 SM, No rub noted, No Gallop, - - well healed sternotomy incision Abdomen: Bowel Sounds Present, Soft, Non Tender, Non-Distended, No Hepato-splenomegaly, No hernias noted Extremities: No clubbing, No cyanosis, No edema, Capillary Refill Less than 3 Seconds, No Calf Tenderness, Diminished Peripheral Pulses - +1 Skin: No rashes, Ulcer/ Wound - knees and ant tibial area B LE Musculoskeletal: No Tenderness to Palpation of Joints or Extremities, No Muscle Wasting, Tenderness - L LE at hip area with movement and palpation of the anterior and lateral soft tissue Neurological: Cranial nerves II-XII grossly intact, Deep Tendon Reflexes 2+/4 and Symmetrical, - - generalized weakness Psych/Mental Status: Impulsive, - - calm but only A&O x 1 (self) Laboratory Results 05/03/19 16:50: WBC 11.4 H, RBC 4.45 L, Hgb 13.7, Hct 42.1, MCV 94.6 H, MCH 30.8, MCHC 32.5, RDW Std Deviation 44.0 H, RDW Coeff of Calixto 12.8, Plt Count 307, MPV 9.3, Immature Gran % (Auto) 0.600, Neut % (Auto) 83.5 H, Lymph % (Auto) 5.9 L, Gillespie % (Auto) 9.4, Eos % (Auto) 0.2, Baso % (Auto) 0.4, Absolute Neuts (auto) 9.6 H, Absolute Lymphs (auto) 0.67 L, Nucleated RBC % 0 05/03/19 16:50: PT 15.1 H, INR 1.2, APTT 29.6 05/03/19 16:50: Sodium 144, Potassium 4.4, Chloride 107, Carbon Dioxide 28.0, Anion Gap 9, BUN 22 H, Creatinine 1.16, Estim Creat Clear Calc 48.93, Est GFR (MDRD) Af Amer 77, Est GFR (MDRD) Non-Af 64, BUN/Creatinine Ratio 19.0, Glucose 138 H, Calcium 9.2 05/03/19 17:20: Blood Type A POSITIVE, Antibody Screen NEGATIVE Current Medications Sodium Chloride () 1,000 mls @ 250 mls/hr IV .Q4H [facility] Last Admin: 05/03/19 17:24 Dose: 250 mls/hr Documented by: Assessment/Plan All Active Problems (This Medical Record has been edited. Action required.) Acute encephalopathy (Acute) UTI (urinary tract infection) (Acute) CVA (cerebral vascular accident) (Acute) Hip fracture (Acute) L Intertrochanteric Fracture with L BILL in place -consult to orthopaedics -D/W Dr. 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
--- NOTE | 2019-05-03 20:36 | CT_ITS ---
HISTORY:LT HIP FX. Patient fell and has lt hip pain. Existing replacement LT HIP FX. Patient fell and has lt hip pain. Existing replacement EXAMINATION: CT Hip W/O Contrast Injection TECHNIQUE: Helically acquired images were obtained of the . Left hip... 2-D reformats were performed by the technologist. A radiation dose optimization technique was used for this scan. IV Contrast dosage and agent: None. COMPARISON: Left hip radiograph obtained on May 03, 2019 at 5:32 PM FINDINGS: SOFT TISSUES: Atherosclerotic vascular disease No radiopaque foreign body. BONES/JOINTS: There is an intratrochanteric hip fracture on the left and extends through the lesser as well as in for aspect of the greater trochanter. A left total hip prosthesis is noted. Lucency is seen surrounding the acetabular There is a bone island seen within the sacral side of the left sacroiliac joint. Minimal osteophyte formation CT/Extremity Lower without Contra IMPRESSION: There is a left total hip prosthesis. An intratrochanteric hip fracture is visualized at this level without significant displacement of the fracture fragments Lucency surrounds the acetabular component of the left hip arthroplasty Atherosclerotic vascular disease Individualized dose optimization techniques were used for this CT. at 2301 Reported and signed by: Vicky Rodriguez DO Electronically Signed: Vicky Rodriguez DO at 22:59 EST Tel , Service support ,
--- NOTE | 2019-05-03 21:34 | NURSING ---
Fanny Garza helped with answering some of the pts questions on admission.
[2019-05-03] MEDS: 0.9% Saline Lock 10 ML Syringe IV (22:39)
[2019-05-03] MEDS: OLANZapine 5 MG/TAB TAB.RAPDIS PO (22:40)
[2019-05-03] MEDS: Divalproex Sodium 125 MG SPRINKLE 250 MG PO (22:41)
[2019-05-03] MEDS: RisperiDONE 0.5 MG Tablet PO (22:41)
[2019-05-04] VITALS (11 sets, daily range): BP systolic 92–129; BP diastolic 47–54; PULSE 58–74; RESP 16–18; TEMP 36.7–37.4; O2SAT 92–99
[2019-05-04 00:11] LABS: Bedside Glucose 103 mg/dL (70-110)
[2019-05-04] MEDS: Lactated Ringers 1,000 ML 50 ML IV (02:14)
[2019-05-04 06:21] LABS: Absolute Lymphocyte Count 1.12 X10^3/uL (0.83-4.51); Basophil# 0.03 X10^3/uL; Basophil% 0.4 % (0-1); Eosinophil# 0.08 X10^3/uL; Eosinophils% 1.1 % (0-5); Hematocrit 35.7 % (40-54); Hemoglobin 11.3 g/dL (13.0-16.5); Lymphocyte # 1.12 X10^3/ul (4.0); Lymphocyte % 15.4 % (19-41); Mean Corp Hgb Conc 31.7 g/dL (32-36); Mean Corpuscular Hgb 30.6 pg (27.0-32.0); Mean Corpuscular Volume 96.7 fL (80-94); Mean Platelet Vol. 9.5 fl (6.2-12.0); Monocyte# 0.97 X10^3/uL; Monocyte% 13.4 % (0-10); NRBC Flagged by Analyzer 0 % (0-5); Neutrophil # 5.03 X10^3/uL (2.7-7.7); Neutrophil % 69.3 % (47-70); Platelet Count 227 K/mm3 (150-450); RBC Distribution Width CV 13.1 % (11.6-14.6); RBC Distribution Width SD 46.3 fl (35.1-43.9); Red Blood Count 3.69 M/mm3 (4.6-6.2); White Blood Count 7.3 K/mm3 (4.4-11.0)
[2019-05-04] MEDS: Divalproex Sodium 125 MG SPRINKLE 250 MG PO ×3 (06:21→21:17)
[2019-05-04 07:03] LABS: International Normalized Ratio 1.2; Prothrombin Time (Protime)PT. 15.4 SECONDS (11.7-14.9)
[2019-05-04 07:04] LABS: Partial Thromboplast Time 34.6 Seconds (24.1-36.2)
[2019-05-04 07:05] LABS: ALB/GLOB Ratio 0.8 RATIO (0.9-2.4); AST(SGOT) 17 U/L (15-37); Alanine Aminotransfer ALT/SGPT 13 U/L (16-61); Albumin, Serum 2.8 g/dL (3.2-5.0); Alkaline Phosphatase 49 U/L (45-117); Anion Gap 2 (5-15); BUN 22 mg/dL (7-18); BUN/Creat Ratio 26.5 RATIO (10-20); Calcium,Total 8.2 mg/dL (8.5-10.1); Chloride 109 mmol/L (98-107); Creatinine, Serum 0.83 mg/dL (0.70-1.30); EST Glomerular Filtration Rate 94 mL/min (>60); Est Glom Filt Rate - Afr Amer 113 mL/min (>60); Estimated Creatinine Clearance 64.73 ml/min; Globulin 3.7 g/dL (2.2-4.2); Glucose 84 mg/dL (74-106); Magnesium 2.4 mg/dL (1.6-2.6); Phosphorus 3.5 mg/dL (2.5-4.9); Potassium 3.9 mmol/L (3.5-5.1); Protein, Total 6.5 g/dL (6.4-8.2); Sodium Level 143 mmol/L (136-145)
[2019-05-04 07:15] LABS: Bedside Glucose 88 mg/dL (70-110)
[2019-05-04] MEDS: 0.9% Saline Lock 10 ML Syringe IV (10:04)
[2019-05-04] MEDS: RisperiDONE 0.5 MG Tablet PO ×2 (10:40→21:17)
[2019-05-04] MEDS: Metoprolol(XL)Succ 50 MG Tablet PO (10:41)
[2019-05-04] MEDS: Enoxaparin 40 MG/0.4 ML Syringe SC (10:43)
--- NOTE | 2019-05-04 11:20 | CON.PCM_ITS ---
Reason for Consult Date of Consultation: 05/04/19 Reason for Consultation: left hip pain History of Present Illness: Per chart. The patient is a 84 year old M who presented to the ED at [facility] on the evening of 05/03/19 2/2 to the pt's unwillingness to stand, walk, or put weight on his LLE for the past several days. Discussed with daughter. Patient had his total hip prosthesis done by Dr. Sabillon. He is demented at baseline. Patient seen and examined today by himself. history obtained from daughter on the phone as above. [] Past Medical History Medical History: Medical History (This Medical Record has been edited. Action required.) CAD (coronary artery disease) I25.10 HTN (hypertension) I10 Allergies No Known Allergies Allergy (Verified 05/03/19 16:51) Home Medications: Ambulatory Orders Medication Instructions Recorded Aspirin 81 mg PO DAILY 04/29/19 Divalproex Sprinkles [Depakote 250 mg PO TID 04/29/19 Sprinkles] Lorazepam 0.5 mg PO Q8H PRN 04/29/19 Melatonin [Melatin] 6 mg PO QHS 04/29/19 Olanzapine 1 tab PO QHS 04/29/19 Acetaminophen [Tylenol] 650 mg PO Q4H PRN 04/30/19 Lorazepam [Ativan] 1 mg PO TID PRN PRN 04/30/19 Metoprolol(XL)Succ [Toprol Xl 50 mg PO DAILY 04/30/19 (Beta Vishal)] Hydrochlorothiazide [Hctz] 25 mg PO DAILY 05/03/19 Polyethylene Glycol 3350 [Miralax] 17 gm PO BID PRN 05/03/19 Risperidone [Risperdal] 0.5 mg PO BID 05/03/19 Surgical History: coronary bypass surgery, total hip arthroplasty, - - Carotid endarterectomy Psychiatric History: - - dementia with behavior disorder Lives: Longterm Smoking Status: Former smoker Alcohol: None Drugs: None - *Family History Maternal History Items: - - Fairly healthy maternal medical history. Her mother at about age 97. Paternal History Items: Heart Disease Review of Systems Musculoskeletal: Reports: Joint Pain - Left hip pain, difficult to assess review of systems secondary to baseline mental status Patient Problems: Active and Suspected Problems (This Medical Record has been edited. Action required.) Hip fracture (Acute) Nondisplaced intertrochanteric fracture of left femur, initial encounter for closed fracture (Acute) - Physical Exam Vitals/I&O's: Vital Signs Temp Pulse Resp BP Pulse Ox 98.1 F 74 16 129/47 H 94 05/04/19 03:00 05/04/19 10:41 05/04/19 03:00 05/04/19 03:00 05/04/19 07:52 Oxygen Delivery Method Room Air Weight: 165 lb 2.02 oz Body Mass Index (BMI) 20.4 Intake and Output for Last 24 Hours 05/02/19 05/03/19 05/04/19 23:59 23:59 23:59 Intake Total 1120 / 1120 Output Total 325 / 325 Balance 795 / 795 General: Confused - Review of systems at baseline unable to assess Dementia confused at baseline,responds appropriately to pain during PE Oral: Dry Mucosa Neck: No JVD Lungs: Clear to auscultation Cardiovascular: Regular rate Abdomen: Bowel Sounds Present Extremities: Tenderness - Left hip, active range of motion passive range of motion ankles and toes intact, compartment soft sensation grossly intact Laboratory Results 05/03/19 16:50: WBC 11.4 H, RBC 4.45 L, Hgb 13.7, Hct 42.1, MCV 94.6 H, MCH 30.8, MCHC 32.5, RDW Std Deviation 44.0 H, RDW Coeff of Calixto 12.8, Plt Count 307, MPV 9.3, Immature Gran % (Auto) 0.600, Neut % (Auto) 83.5 H, Lymph % (Auto) 5.9 L, Bennett % (Auto) 9.4, Eos % (Auto) 0.2, Baso % (Auto) 0.4, Absolute Neuts (auto) 9.6 H, Absolute Lymphs (auto) 0.67 L, Nucleated RBC % 0 05/03/19 16:50: PT 15.1 H, INR 1.2, APTT 29.6 05/03/19 16:50: Sodium 144, Potassium 4.4, Chloride 107, Carbon Dioxide 28.0, Anion Gap 9, BUN 22 H, Creatinine 1.16, Estim Creat Clear Calc 48.93, Est GFR (MDRD) Af Amer 77, Est GFR (MDRD) Non-Af 64, BUN/Creatinine Ratio 19.0, Glucose 138 H, Calcium 9.2 05/03/19 17:20: Blood Type A POSITIVE, Antibody Screen NEGATIVE 05/03/19 22:52: POC Glucose 103 05/04/19 05:00: PT 15.4 H, INR 1.2, APTT 34.6 05/04/19 05:00: WBC 7.3, RBC 3.69 L, Hgb 11.3 L, Hct 35.7 L, MCV 96.7 H, MCH 30.6, MCHC 31.7 L, RDW Std Deviation 46.3 H, RDW Coeff of Calixto 13.1, Plt Count 227, MPV 9.5, Immature Gran % (Auto) 0.400, Neut % (Auto) 69.3, Lymph % (Auto) 15.4 L, Bennett % (Auto) 13.4 H, Eos % (Auto) 1.1, Baso % (Auto) 0.4, Absolute Neuts (auto) 5.0, Absolute Lymphs (auto) 1.12, Nucleated RBC % 0 05/04/19 05:00: Sodium 143, Potassium 3.9, Chloride 109 H, Carbon Dioxide 32.0, Anion Gap 2 L, BUN 22 H, Creatinine 0.83, Estim Creat Clear Calc 64.73, Est GFR (MDRD) Af Amer 113, Est GFR (MDRD) Non-Af 94, BUN/Creatinine Ratio 26.5 H, Glucose 84, Calcium 8.2 L, Phosphorus 3.5, Magnesium 2.4, Total Bilirubin 1.50 H , AST 17, ALT 13 L, Alkaline Phosphatase 49, Total Protein 6.5, Albumin 2.8 L, Globulin 3.7, Albumin/Globulin Ratio 0.8 L 05/04/19 07:11: POC Glucose 88 Current Medications Acetaminophen (Tylenol) 650 mg PO Q6H PRN PRN PRN Reason: Pain Score 1-5/Temp>100.7 Albuterol/Ipratropium (Duoneb) 3 ml INHALATION Q4HWA.RT [facility] Aspirin (Aspirin, Baby) 81 mg PO DAILYCM [facility] Divalproex Sodium (Depakote Sprinkles) 250 mg PO TID [facility] Last Admin: 05/04/19 06:21 Dose: 250 mg Documented by: Enoxaparin Sodium (Lovenox) 40 mg SC DAILY [facility] Last Admin: 05/04/19 10:43 Dose: 40 mg Documented by: Glucagon () 1 mg IM .X1 PRN PRN Reason: Hypoglycemia Lactated Ringer's () 1,000 mls @ 50 mls/hr IV .Q20H [facility] Last Admin: 05/04/19 02:14 Dose: 50 mls/hr Documented by: Sodium Chloride () 250 mls @ 15 mls/hr IV .[id number] PRN PRN Reason: Saline Flush Lorazepam (Ativan) 0.5 mg PO Q8H PRN PRN PRN Reason: ANXIETY Melatonin (Melatonin) 3 mg PO QHS PRN PRN PRN Reason: INSOMNIA Metoprolol Succinate (Toprol Xl (Beta Vishal)) 50 mg PO DAILY [facility] Last Admin: 05/04/19 10:41 Dose: 50 mg Documented by: Morphine Sulfate () 2 mg IV Q3H PRN PRN PRN Reason: Pain Score 6-10/10 Nutritional Formula (Lactose Free) (Ensure Enlive) 120 ml PO 4X/DAY [facility] Last Admin: 05/04/19 10:39 Dose: 120 ml Documented by: Olanzapine (Zyprexa Zydis) 5 mg PO QHS [facility] Last Admin: 05/03/19 22:40 Dose: 5 mg Documented by: Polyethylene Glycol (Miralax) 17 gm PO BID PRN PRN PRN Reason: Constipation Risperidone (Risperdal) 0.5 mg PO BID [facility] Last Admin: 05/04/19 10:40 Dose: 0.5 mg Documented by: Sodium Chloride () 10 - 40 ml IV UD PRN PRN Reason: SALINE FLUSH Last Admin: 05/04/19 10:04 Dose: 10 ml Documented by: Assessment/Plan All Active Problems (This Medical Record has been edited. Action required.) Acute encephalopathy (Acute) UTI (urinary tract infection) (Acute) CVA (cerebral vascular accident) (Acute) Hip fracture (Acute) Nondisplaced intertrochanteric fracture of left femur, initial encounter for closed fracture (Acute) Left hip periprosthetic fracture CT scan scan shows greater troch extending to the lesser trochanter around proximal stem Upon discussing this with family family like to proceed with close monitoring with serial xrays with an abduction brace. he will be nonweightbearing for the first 2 weeks then we will progress him to partial weightbearing and follow him very closely with x-rays. Most likely even if I did a claw plate around this it would fail most likely and would need to be converted to a modular stem. Discussion with [facility] if this does happen they are willing to accept patient for transfer urgent versus direct admit depending upon where patient is at that time inpatient rehab versus at the long-term Patient is demented this will be difficult to maintain his partial weightbearing status. However at this time nonweightbearing for 2 weeks with a abduction brace see if patient develops some sort of callus to prevent subsidence of the stem and if not we will need conversion to a revision at a later date. Discussed morbidity and mortality with the daughter in detail. Daughter elected also to proceed with nonoperative treatment at this point. Risk benefits alternatives surgery were discussed with family family like to proceed with abduction brace nonweightbearing for 2 weeks. Abduction brace can be removed in the evenings to prevent wound complications but to be during the day Skin care to left leg is also to prevent wound issues from brace Because patient will be most likely nonweightbearing or partial weightbearing increased risk for DVTs to the would benefit from anticoagulation even as on discharge or transfer X-rays of left hip in 2 weeks please send copies to my office This note was generated with [employer] software. It may contain incorrect words, spelling, and punctuation that were not noted in checking the note before signing.
--- NOTE | 2019-05-04 11:20 | CPS ---
Mask aerosol given, patient tolerated well for first 1-2 minutes. Patient then removed mask. Aerosol was finished via blow-by. Patient not allowing pule oximeter check.
[2019-05-04] MEDS: Ipratropium/Albuterol Sulfate 3 ML AMPUL.NEB INHALATION ×3 (11:29→20:01)
--- NOTE | 2019-05-04 11:29 | PN_ITS ---
<David Grajeda - Last Filed: 05/04/19 11:29> Patient Problems: Active and Suspected Problems (This Medical Record has been edited. Action required.) Hip fracture (Acute) Nondisplaced intertrochanteric fracture of left femur, initial encounter for closed fracture (Acute) Reason for Visit: hip fx Subjective: Pt denies any pain this AM. No nausea/vomiting, no diarrhea, no cough/SOB. He is A/Ox1 and pleasantly confused. Vitals/I&O's: Vital Signs Temp Pulse Resp BP Pulse Ox 98.1 F 74 16 129/47 H 94 05/04/19 03:00 05/04/19 10:41 05/04/19 03:00 05/04/19 03:00 05/04/19 07:52 Oxygen Delivery Method Room Air Weight: 165 lb 2.02 oz Body Mass Index (BMI) 20.4 Intake and Output for Last 24 Hours 05/02/19 05/03/19 05/04/19 23:59 23:59 23:59 Intake Total 1120 / 1120 Output Total 325 / 325 Balance 795 / 795 General: Alert, Cooperative, Confused HEENT: Atraumatic, PERRLA, EOMI, Normocephalic Neck: Supple, No JVD, Negative Carotid Bruits Lungs: Clear to auscultation, Normal air movement Cardiovascular: Regular rate, No murmurs Abdomen: Bowel Sounds Present, Soft, Non Tender Extremities: No edema, Capillary Refill Less than 3 Seconds Skin: No rashes, No breakdown Musculoskeletal: No Tenderness to Palpation of Joints or Extremities Neurological: Cranial nerves II-XII grossly intact Psych/Mental Status: Normal Affect, Appropriate Laboratory Results 05/03/19 16:50: WBC 11.4 H, RBC 4.45 L, Hgb 13.7, Hct 42.1, MCV 94.6 H, MCH 30.8, MCHC 32.5, RDW Std Deviation 44.0 H, RDW Coeff of Calixto 12.8, Plt Count 307, MPV 9.3, Immature Gran % (Auto) 0.600, Neut % (Auto) 83.5 H, Lymph % (Auto) 5.9 L, [place] % (Auto) 9.4, Eos % (Auto) 0.2, Baso % (Auto) 0.4, Absolute Neuts (auto) 9.6 H, Absolute Lymphs (auto) 0.67 L, Nucleated RBC % 0 05/03/19 16:50: PT 15.1 H, INR 1.2, APTT 29.6 05/03/19 16:50: Sodium 144, Potassium 4.4, Chloride 107, Carbon Dioxide 28.0, Anion Gap 9, BUN 22 H, Creatinine 1.16, Estim Creat Clear Calc 48.93, Est GFR (MDRD) Af Amer 77, Est GFR (MDRD) Non-Af 64, BUN/Creatinine Ratio 19.0, Glucose 138 H, Calcium 9.2 05/03/19 17:20: Blood Type A POSITIVE, Antibody Screen NEGATIVE 05/03/19 22:52: POC Glucose 103 05/04/19 05:00: PT 15.4 H, INR 1.2, APTT 34.6 05/04/19 05:00: WBC 7.3, RBC 3.69 L, Hgb 11.3 L, Hct 35.7 L, MCV 96.7 H, MCH 30.6, MCHC 31.7 L, RDW Std Deviation 46.3 H, RDW Coeff of Calixto 13.1, Plt Count 227, MPV 9.5, Immature Gran % (Auto) 0.400, Neut % (Auto) 69.3, Lymph % (Auto) 15.4 L, [place] % (Auto) 13.4 H, Eos % (Auto) 1.1, Baso % (Auto) 0.4, Absolute Neuts (auto) 5.0, Absolute Lymphs (auto) 1.12, Nucleated RBC % 0 05/04/19 05:00: Sodium 143, Potassium 3.9, Chloride 109 H, Carbon Dioxide 32.0, Anion Gap 2 L, BUN 22 H, Creatinine 0.83, Estim Creat Clear Calc 64.73, Est GFR (MDRD) Af Amer 113, Est GFR (MDRD) Non-Af 94, BUN/Creatinine Ratio 26.5 H, Glucose 84, Calcium 8.2 L, Phosphorus 3.5, Magnesium 2.4, Total Bilirubin 1.50 H , AST 17, ALT 13 L, Alkaline Phosphatase 49, Total Protein 6.5, Albumin 2.8 L, Globulin 3.7, Albumin/Globulin Ratio 0.8 L 05/04/19 07:11: POC Glucose 88 Current Medications Acetaminophen (Tylenol) 650 mg PO Q6H PRN PRN PRN Reason: Pain Score 1-5/Temp>100.7 Albuterol/Ipratropium (Duoneb) 3 ml INHALATION Q4HWA.RT [facility] Aspirin (Aspirin, Baby) 81 mg PO DAILYCM [facility] Divalproex Sodium (Depakote Sprinkles) 250 mg PO TID [facility] Last Admin: 05/04/19 06:21 Dose: 250 mg Documented by: Enoxaparin Sodium (Lovenox) 40 mg SC DAILY [facility] Last Admin: 05/04/19 10:43 Dose: 40 mg Documented by: Glucagon () 1 mg IM .X1 PRN PRN Reason: Hypoglycemia Lactated Ringer's () 1,000 mls @ 50 mls/hr IV .Q20H [facility] Last Admin: 05/04/19 02:14 Dose: 50 mls/hr Documented by: Sodium Chloride () 250 mls @ 15 mls/hr IV .[id number] PRN PRN Reason: Saline Flush Lorazepam (Ativan) 0.5 mg PO Q8H PRN PRN PRN Reason: ANXIETY Melatonin (Melatonin) 3 mg PO QHS PRN PRN PRN Reason: INSOMNIA Metoprolol Succinate (Toprol Xl (Beta Vishal)) 50 mg PO DAILY [facility] Last Admin: 05/04/19 10:41 Dose: 50 mg Documented by: Morphine Sulfate () 2 mg IV Q3H PRN PRN PRN Reason: Pain Score 6-10/10 Nutritional Formula (Lactose Free) (Ensure Enlive) 120 ml PO 4X/DAY [facility] Last Admin: 05/04/19 10:39 Dose: 120 ml Documented by: Olanzapine (Zyprexa Zydis) 5 mg PO QHS [facility] Last Admin: 05/03/19 22:40 Dose: 5 mg Documented by: Polyethylene Glycol (Miralax) 17 gm PO BID PRN PRN PRN Reason: Constipation Risperidone (Risperdal) 0.5 mg PO BID [facility] Last Admin: 05/04/19 10:40 Dose: 0.5 mg Documented by: Sodium Chloride () 10 - 40 ml IV UD PRN PRN Reason: SALINE FLUSH Last Admin: 05/04/19 10:04 Dose: 10 ml Documented by: STROKE Vital Signs/Narrative: Vital Signs Pulse Pulse Ox 05/04/19 10:41 74 05/04/19 07:52 94 Medical Necessity - Tobacco Use Smoking Status: Former smoker Assessment/Plan All Active Problems (This Medical Record has been edited. Action required.) Acute encephalopathy (Acute) UTI (urinary tract infection) (Acute) CVA (cerebral vascular accident) (Acute) Hip fracture (Acute) Nondisplaced intertrochanteric fracture of left femur, initial encounter for closed fracture (Acute) 1. Left hip intratrochanteric fx - ortho following, non operative management. NWB 2 weeks, abduction brace. Pain well controlled. Reactive leukocytosis resolved. 2. Alzheimer dementia with behavioral disturbance - pleasantly confused. A/Ox1. Depakote, ativan, olanzapine, risperdal, melatonin 3. 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 4. CAD, prior CABG - asa/metoprolol 5. Carotid stenosis - prior CEA 6. HTN - HCTZ held. Controlled. DVT ppx: heparin DC planning: SNF. This patient was seen by David Grajeda PA-C under the supervision of Doctor Quezada. <Emily Quezada - Last Filed: 05/04/19 12:46> Vitals/I&O's: Vital Signs Temp Pulse Resp BP Pulse Ox 98.1 F 74 16 129/47 H 94 05/04/19 03:00 05/04/19 10:41 05/04/19 03:00 05/04/19 03:00 05/04/19 07:52 Oxygen Delivery Method Room Air Weight: 74.9 kg Body Mass Index (BMI) 20.4 Intake and Output for Last 24 Hours 05/02/19 05/03/19 05/04/19 23:59 23:59 23:59 Intake Total 1120 / 1120 Output Total 325 / 325 Balance 795 / 795 Laboratory Results 05/03/19 16:50: WBC 11.4 H, RBC 4.45 L, Hgb 13.7, Hct 42.1, MCV 94.6 H, MCH 30.8, MCHC 32.5, RDW Std Deviation 44.0 H, RDW Coeff of Calixto 12.8, Plt Count 307, MPV 9.3, Immature Gran % (Auto) 0.600, Neut % (Auto) 83.5 H, Lymph % (Auto) 5.9 L, [place] % (Auto) 9.4, Eos % (Auto) 0.2, Baso % (Auto) 0.4, Absolute Neuts (auto) 9.6 H, Absolute Lymphs (auto) 0.67 L, Nucleated RBC % 0 05/03/19 16:50: PT 15.1 H, INR 1.2, APTT 29.6 05/03/19 16:50: Sodium 144, Potassium 4.4, Chloride 107, Carbon Dioxide 28.0, Anion Gap 9, BUN 22 H, Creatinine 1.16, Estim Creat Clear Calc 48.93, Est GFR (MDRD) Af Amer 77, Est GFR (MDRD) Non-Af 64, BUN/Creatinine Ratio 19.0, Glucose 138 H, Calcium 9.2 05/03/19 17:20: Blood Type A POSITIVE, Antibody Screen NEGATIVE 05/03/19 22:52: POC Glucose 103 05/04/19 05:00: PT 15.4 H, INR 1.2, APTT 34.6 05/04/19 05:00: WBC 7.3, RBC 3.69 L, Hgb 11.3 L, Hct 35.7 L, MCV 96.7 H, MCH 30.6, MCHC 31.7 L, RDW Std Deviation 46.3 H, RDW Coeff of Calixto 13.1, Plt Count 227, MPV 9.5, Immature Gran % (Auto) 0.400, Neut % (Auto) 69.3, Lymph % (Auto) 15.4 L, [place] % (Auto) 13.4 H, Eos % (Auto) 1.1, Baso % (Auto) 0.4, Absolute Neuts (auto) 5.0, Absolute Lymphs (auto) 1.12, Nucleated RBC % 0 05/04/19 05:00: Sodium 143, Potassium 3.9, Chloride 109 H, Carbon Dioxide 32.0, Anion Gap 2 L, BUN 22 H, Creatinine 0.83, Estim Creat Clear Calc 64.73, Est GFR (MDRD) Af Amer 113, Est GFR (MDRD) Non-Af 94, BUN/Creatinine Ratio 26.5 H, Glucose 84, Calcium 8.2 L, Phosphorus 3.5, Magnesium 2.4, Total Bilirubin 1.50 H , AST 17, ALT 13 L, Alkaline Phosphatase 49, Total Protein 6.5, Albumin 2.8 L, Globulin 3.7, Albumin/Globulin Ratio 0.8 L 05/04/19 07:11: POC Glucose 88 Current Medications Acetaminophen (Tylenol) 650 mg PO Q6H PRN PRN PRN Reason: Pain Score 1-5/Temp>100.7 Albuterol/Ipratropium (Duoneb) 3 ml INHALATION Q4HWA.RT [facility] Last Admin: 05/04/19 11:29 Dose: 3 ml Documented by: [facility] Divalproex Sodium (Depakote Sprinkles) 250 mg PO TID [facility] Last Admin: 05/04/19 06:21 Dose: 250 mg Documented by: Enoxaparin Sodium (Lovenox) 40 mg SC DAILY [facility] Last Admin: 05/04/19 10:43 Dose: 40 mg Documented by: Glucagon () 1 mg IM .X1 PRN PRN Reason: Hypoglycemia Lactated Ringer's () 1,000 mls @ 50 mls/hr IV .Q20H [facility] Last Admin: 05/04/19 02:14 Dose: 50 mls/hr Documented by: Sodium Chloride () 250 mls @ 15 mls/hr IV .[id number] PRN PRN Reason: Saline Flush Lorazepam (Ativan) 0.5 mg PO Q8H PRN PRN PRN Reason: ANXIETY Melatonin (Melatonin) 3 mg PO QHS PRN PRN PRN Reason: INSOMNIA Metoprolol Succinate (Toprol Xl (Beta Vishal)) 50 mg PO DAILY [facility] Last Admin: 05/04/19 10:41 Dose: 50 mg Documented by: Morphine Sulfate () 2 mg IV Q3H PRN PRN PRN Reason: Pain Score 6-10/10 Nutritional Formula (Lactose Free) (Ensure Enlive) 120 ml PO 4X/DAY [facility] Last Admin: 05/04/19 10:39 Dose: 120 ml Documented by: Olanzapine (Zyprexa Zydis) 5 mg PO QHS [facility] Last Admin: 05/03/19 22:40 Dose: 5 mg Documented by: Polyethylene Glycol (Miralax) 17 gm PO BID PRN PRN PRN Reason: Constipation Risperidone (Risperdal) 0.5 mg PO BID [facility] Last Admin: 05/04/19 10:40 Dose: 0.5 mg Documented by: Sodium Chloride () 10 - 40 ml IV UD PRN PRN Reason: SALINE FLUSH Last Admin: 05/04/19 10:04 Dose: 10 ml Documented by: STROKE Vital Signs/Narrative: Vital Signs Pulse 05/04/19 10:41 74 Assessment/Plan This patient was seen in conjunction with SOUTH Ahumada. I have independently interviewed and examined the patient and reviewed pertinent historical, laboratory, and other data. Please refer to SOUTH Ahumada note for his patient's presentation, findings, and recommendations. I have reviewed and his note and concur with his documentation 84y/o male with PMhx of CAD s/p CABG, hypertension, Carotid artery disease s/p carotid endarterectomy who was admitted with inability to bear weight and found to have a left hip intertrochanteric fracture. Patient was recently admitted on 04/29/19 with acute left MCA CVA and discharged on 05/01/19. He remains oriented to self. Pleasant. Denies any complains. Physical Exam: Gen: Comfortable, not pale, not jaundiced, well hydrated CVS:HS I +II, regular, no murmurs RESP: CTA GI: BS present and normal, soft, nontender, no palpable organs EXT:No edema, tenderness over the left hip ASSESSMENT: 1. Left hip intratrochanteric fracture 2. Recent CVA 3. Alzheimer's dementia with behaviorial disturbances 4. ZAKIYA on CKD stage III 5. CAD s/p CABG 6. Left carotid stenosis, h/o previous carotid endarterectomy Plan: Will follow-up on orthopedic recommendations Patient will need plavix added to his aspirin regimen later after surgery if ok with surgeon because of history of recent CVA Continue on scheduled tylenol Continue to hold HCTZ Labs in am Code Visit Inpatient E&M: 68403 Subs Hosp L2
[2019-05-04] MEDS: Acetaminophen 500 MG Tablet 1000 MG PO ×2 (14:14→21:17)
[2019-05-04] MEDS: OLANZapine 5 MG/TAB TAB.RAPDIS PO (21:18)
[2019-05-05] VITALS (7 sets, daily range): BP systolic 93–132; BP diastolic 51–80; PULSE 56–71; RESP 16–19; TEMP 36.1–36.8; O2SAT 95–100
--- NOTE | 2019-05-05 01:24 | NURSING ---
Patient awake, stating he wants to get out of the bed. Patient reminded he is not able to get up at this time because he broke his hip, patient unable to comprehend. This RN and BORING MACHINE OPERATOR repositioned patient and turned him onto his right side, patient then immediately tuned back onto his back. This RN offered patient water, patient stated yes but then once the water was offered patient refused. Patient is confused. Bed alarm set, will continue to monitor.
[2019-05-05] MEDS: Haloperidol Lactate 5 MG/ML Vial 2 MG IM (02:07)
--- NOTE | 2019-05-05 08:29 | PCM.PN.HOSP ---
Patient Problems: Active and Suspected Problems (This Medical Record has been edited. Action required.) Hip fracture (Acute) Nondisplaced intertrochanteric fracture of left femur, initial encounter for closed fracture (Acute) Reason for Visit: left hip intertrochanteric fracture. Subjective: Patient is an 84-year-old gentleman resident of an assisted living care facility admitted with a fall found to have a left hip intertrochanteric fracture Objective: GENERAL: In no apparent distress HEENT: Atraumatic; EYES; Anicteric, Normal Conjunctiva NECK; supple, normal thyroid, RESPIRATORY: Diminished to auscultation CARDIOVASCULAR: Regular S1 S2, GI: soft, normoactive bowel sounds, : No Renal angle tenderness; EXTREMITIES: No edema, no clubbing, MUSCULOSKELETAL: no muscle waisting NEURO: Awake; no lateralizing signs. SKIN: No Rash PSYCH; Flat affect Vitals/I&O's: Vital Signs Temp Pulse Resp BP Pulse Ox 97.6 F L 56 L 18 98/53 L 95 05/05/19 02:46 05/05/19 02:46 05/05/19 02:46 05/05/19 02:46 05/05/19 07:30 Oxygen Delivery Method Room Air Weight: 74.6 kg Body Mass Index (BMI) 20.4 Intake and Output for Last 24 Hours 05/03/19 05/04/19 05/05/19 23:59 23:59 23:59 Intake Total 2064.17 / 2064.17 100 / 100 Output Total 1075 / 1075 150 / 150 Balance 989.17 / 989.17 -50 / -50 Current Medications Acetaminophen (Tylenol) 1,000 mg PO TID [facility] Last Admin: 05/04/19 21:17 Dose: 1,000 mg Documented by: Albuterol/Ipratropium (Duoneb) 3 ml INHALATION Q4HWA.RT [facility] Last Admin: 05/05/19 07:30 Dose: Not Given Documented by: Aspirin (Aspirin, Baby) 81 mg PO DAILYCM [facility] Divalproex Sodium (Depakote Sprinkles) 250 mg PO TID [facility] Last Admin: 05/04/19 21:17 Dose: 250 mg Documented by: Enoxaparin Sodium (Lovenox) 40 mg SC DAILY [facility] Last Admin: 05/04/19 10:43 Dose: 40 mg Documented by: Sodium Chloride () 250 mls @ 15 mls/hr IV .[id number] PRN PRN Reason: Saline Flush Lorazepam (Ativan) 0.5 mg PO Q8H PRN PRN PRN Reason: ANXIETY Melatonin (Melatonin) 3 mg PO QHS PRN PRN PRN Reason: INSOMNIA Metoprolol Succinate (Toprol Xl (Beta Vishal)) 50 mg PO DAILY [facility] Last Admin: 05/04/19 10:41 Dose: 50 mg Documented by: Morphine Sulfate () 2 mg IV Q3H PRN PRN PRN Reason: Pain Score 6-10/10 Nutritional Formula (Lactose Free) (Ensure Enlive) 120 ml PO 4X/DAY [facility] Last Admin: 05/05/19 08:08 Dose: Not Given Documented by: Olanzapine (Zyprexa Zydis) 5 mg PO QHS [facility] Last Admin: 05/04/19 21:18 Dose: 5 mg Documented by: Polyethylene Glycol (Miralax) 17 gm PO BID PRN PRN PRN Reason: Constipation Risperidone (Risperdal) 0.5 mg PO BID [facility] Last Admin: 05/04/19 21:17 Dose: 0.5 mg Documented by: Sodium Chloride () 10 - 40 ml IV UD PRN PRN Reason: SALINE FLUSH Last Admin: 05/04/19 10:04 Dose: 10 ml Documented by: STROKE Vital Signs/Narrative: Vital Signs Pulse Ox 05/05/19 07:30 95 Medical Necessity - Tobacco Use Smoking Status: Former smoker Assessment/Plan All Active Problems (This Medical Record has been edited. Action required.) Acute encephalopathy (Acute) UTI (urinary tract infection) (Acute) CVA (cerebral vascular accident) (Acute) Hip fracture (Acute) Nondisplaced intertrochanteric fracture of left femur, initial encounter for closed fracture (Acute) Patient is an 84-year-old gentleman resident of an assisted living care facility admitted with a fall found to have a left hip intertrochanteric fracture 1. Left hip intratrochanteric fracture ~Patient admitted to regular nursing floor managed with pain meds immobilization with consultation placed to orthopedic surgery. Patient was seen by Dr. Viveros; her recommendation is to manage patient conservatively with nonweightbearing for 2 weeks. Consult subsequently placed to case management/social media designer to assist with disposition 2. 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 Coronary artery disease ?With previous CABG 4. Peripheral arterial disease with carotid artery disease Status post carotid endarterectomy 5. Hypertension ~ blood pressure controlled, home medications continued with dose adjustment as needed 6. Alzheimer's dementia With behavioral disturbances patient did receive Haldol during the night 7. DVT prophylaxis ~ on enoxaparin Code Visit Inpatient E&M: 62398 Subs Hosp L2
[2019-05-05] MEDS: Acetaminophen 500 MG Tablet 1000 MG PO ×3 (10:12→21:01)
[2019-05-05] MEDS: RisperiDONE 0.5 MG Tablet PO ×2 (10:12→21:03)
[2019-05-05] MEDS: Aspirin 81 MG TAB.CHEW PO (10:12)
[2019-05-05] MEDS: Divalproex Sodium 125 MG SPRINKLE 250 MG PO ×3 (10:13→21:01)
[2019-05-05] MEDS: Enoxaparin 40 MG/0.4 ML Syringe SC (10:13)
[2019-05-05] MEDS: Metoprolol(XL)Succ 50 MG Tablet PO (10:18)
[2019-05-05] MEDS: Ipratropium/Albuterol Sulfate 3 ML AMPUL.NEB INHALATION (10:49)
--- NOTE | 2019-05-05 10:58 | CASEMGMT ---
Addendum entered by Shirley Mejia 05/05/19 11:03: JERRY also informed NGUYEN Prince that pt was given Haldol this morning. Niki states pt is able to return even though pt was given Haldol. Original Note: Social Work Note Pt is listed as being from [facility] and is going to be nonweightbearing for 2 weeks. JERRY placed a call to pt's daughter Rachel. Rachel states she was under the impression that pt was going to be partial weightbearing, was going to have a brace on and could return to [facility]. JERRY informed Rachel that per physician pt's notes today pt will be nonweightbearing for 2 weeks and will have a brace. JERRY informed Rachel that pt will likely be a total assist and that is why SNF is being recommended for pt. Rachel states she works at [facility] and will transfer call to RN to discuss pt's needs. JERRY transferred to NGUYEN Prince. JERRY updated NGUYEN Prince that pt will be nonweightbearing for 2 weeks, will have a brace, and per PT/OT is assist of two. Niki states they are able to provide assist of 2 for pt and can order PT/OT once pt returns to [facility] but Niki would like to see clinicals and PT/OT for pt. JERRY explained that this worker can fax clinicals to [facility]. JERRY faxed updated clinicals. JERRY wrote on fax coversheet to have Niki call this worker to let this worker know if they can accommodate pt's needs at discharge. Plan: Possible discharge back to [facility] if [facility] is able to accommodate pt's needs at discharge. JERRY waiting for call back from NGUYEN Prince. Shirley Mejia SONOGRAPHY TECHNOLOGIST, WAREHOUSE SUPERVISOR 3RD SHIFT
--- NOTE | 2019-05-05 13:24 | CASEMGMT ---
Addendum entered by Shirley Mejia 05/05/19 15:38: SW received call from Patricia at [facility] stating she is able to accept pt and will submit for pre-cert. JERRY placed a call to pt's daughter Rachel and updated her that pt has been accepted to [facility] and pt will remain at [facility] until pre-cert is obtained. Rachel states understanding, states today is her last day of work and she will need to be called at [phone] for updates. Plan: [facility] pending pre-cert Original Note: Social Work Note SW spoke with NGUYEN Layne at [facility] stating they spoke with MD who states [facility] is not able to accommodate pt's level of care at this time and pt needs to go to SNF. SW placed a call to pt's daughter SNF Rachel and updated her that [facility] is not able to accept pt back at this time. SW verbally provided Rachel with list of SNF that accept pt's insurance. Rachel states first choice is [facility] and second choice is [facility]. SW explained referral process and that pt will need pre-cert. Rachel states understanding. JERRY placed a call to Patricia at [facility] and updated her on referral. SW faxed referral to [facility]. j Plan: [facility] pending acceptance and pre-cert Shirley Mejia FROG FARMER, ELECTRICITY TRADING ANALYST
[2019-05-05] MEDS: OLANZapine 5 MG/TAB TAB.RAPDIS PO (21:02)
[2019-05-06] MEDS: LORazepam 0.5 MG Tablet PO (01:03)
[2019-05-06 02:25] VITALS: BP 110/54; PULSE 73; RESP 18; TEMP 37.3; O2SAT 99
[2019-05-06] MEDS: Divalproex Sodium 125 MG SPRINKLE 250 MG PO (05:49)
[2019-05-06] MEDS: Acetaminophen 500 MG Tablet 1000 MG PO (05:49)
--- NOTE | 2019-05-06 07:42 | PCM.PN.HOSP ---
Patient Problems: Active and Suspected Problems (This Medical Record has been edited. Action required.) Hip fracture (Acute) Nondisplaced intertrochanteric fracture of left femur, initial encounter for closed fracture (Acute) Reason for Visit: Follow-up left hip fracture. Subjective: . Patient seen had a relatively uneventful night. Plan is for patient to be transferred to a group home facility pending insurance precertification. Objective: GENERAL: In no apparent distress HEENT: Atraumatic; EYES; Anicteric, Normal Conjunctiva NECK; supple, normal thyroid, RESPIRATORY: Diminished to auscultation CARDIOVASCULAR: Regular S1 S2, GI: soft, normoactive bowel sounds, : No Renal angle tenderness; EXTREMITIES: No edema, no clubbing, MUSCULOSKELETAL: no muscle waisting NEURO: Awake; no lateralizing signs. SKIN: No Rash PSYCH; Flat affect Vitals/I&O's: Vital Signs Temp Pulse Resp BP Pulse Ox 99.2 F H 73 18 110/54 L 99 05/06/19 02:25 05/06/19 02:25 05/06/19 02:25 05/06/19 02:25 05/06/19 02:25 Oxygen Delivery Method Room Air Weight: 73 kg Body Mass Index (BMI) 20.4 Intake and Output for Last 24 Hours 05/04/19 05/05/19 05/06/19 23:59 23:59 23:59 Intake Total 2064.17 / 2064.17 220 / 220 Output Total 1075 / 1075 450 / 450 Balance 989.17 / 989.17 -230 / -230 Current Medications Acetaminophen (Tylenol) 1,000 mg PO TID [facility] Last Admin: 05/06/19 05:49 Dose: 1,000 mg Documented by: Albuterol/Ipratropium (Duoneb) 3 ml INHALATION Q4HWA.RT [facility] Last Admin: 05/05/19 19:35 Dose: Not Given Documented by: Aspirin (Aspirin, Baby) 81 mg PO DAILYCM [facility] Last Admin: 05/05/19 10:12 Dose: 81 mg Documented by: Divalproex Sodium (Depakote Sprinkles) 250 mg PO TID [facility] Last Admin: 05/06/19 05:49 Dose: 250 mg Documented by: Enoxaparin Sodium (Lovenox) 40 mg SC DAILY [facility] Last Admin: 05/05/19 10:13 Dose: 40 mg Documented by: Sodium Chloride () 250 mls @ 15 mls/hr IV .[id number] PRN PRN Reason: Saline Flush Lorazepam (Ativan) 0.5 mg PO Q8H PRN PRN PRN Reason: ANXIETY Last Admin: 05/06/19 01:03 Dose: 0.5 mg Documented by: Melatonin (Melatonin) 3 mg PO QHS PRN PRN PRN Reason: INSOMNIA Metoprolol Succinate (Toprol Xl (Beta Vishal)) 50 mg PO DAILY [facility] Last Admin: 05/05/19 10:18 Dose: 50 mg Documented by: Morphine Sulfate () 2 mg IV Q3H PRN PRN PRN Reason: Pain Score 6-10/10 Nutritional Formula (Lactose Free) (Ensure Enlive) 120 ml PO 4X/DAY [facility] Last Admin: 05/05/19 21:01 Dose: Not Given Documented by: Olanzapine (Zyprexa Zydis) 5 mg PO QHS [facility] Last Admin: 05/05/19 21:02 Dose: 5 mg Documented by: Polyethylene Glycol (Miralax) 17 gm PO BID PRN PRN PRN Reason: Constipation Risperidone (Risperdal) 0.5 mg PO BID [facility] Last Admin: 05/05/19 21:03 Dose: 0.5 mg Documented by: Sodium Chloride () 10 - 40 ml IV UD PRN PRN Reason: SALINE FLUSH Last Admin: 05/04/19 10:04 Dose: 10 ml Documented by: Medical Necessity - Tobacco Use Smoking Status: Former smoker Assessment/Plan All Active Problems (This Medical Record has been edited. Action required.) Acute encephalopathy (Acute) UTI (urinary tract infection) (Acute) CVA (cerebral vascular accident) (Acute) Hip fracture (Acute) Nondisplaced intertrochanteric fracture of left femur, initial encounter for closed fracture (Acute) Patient is an 84-year-old gentleman resident of an assisted living care facility admitted with a fall found to have a left hip intertrochanteric fracture 1. Left hip intratrochanteric fracture ~Patient admitted to regular nursing floor managed with pain meds immobilization with consultation placed to orthopedic surgery. Patient was seen by Dr. Viveros; her recommendation is to manage patient conservatively with nonweightbearing for 2 weeks. Consult subsequently placed to case management/social media content specialist to assist with disposition ?05/06/2019;Patient seen had a relatively uneventful night. Plan is for patient to be transferred to a group home facility pending insurance precertification. 2. 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 Coronary artery disease ?With previous CABG 4. Peripheral arterial disease with carotid artery disease Status post carotid endarterectomy 5. Hypertension ~ blood pressure controlled, home medications continued with dose adjustment as needed 6. Alzheimer's dementia With behavioral disturbances patient did receive Haldol during the night 7. DVT prophylaxis ~ on enoxaparin Code Visit Inpatient E&M: 17493 Subs Hosp L2
[2019-05-06 09:12] LABS: Absolute Lymphocyte Count 0.79 X10^3/uL (0.83-4.51); Absolute Neutrophil Count 6.2 X10^3/uL (2.0-7.7); Basophil# 0.03 X10^3/uL; Basophil% 0.4 % (0-1); Eosinophil# 0.13 X10^3/uL; Eosinophils% 1.6 % (0-5); Hematocrit 37.6 % (40-54); Lymphocyte # 0.79 X10^3/ul (4.0); Mean Corp Hgb Conc 31.9 g/dL (32-36); Mean Corpuscular Hgb 30.5 pg (27.0-32.0); Mean Corpuscular Volume 95.4 fL (80-94); Mean Platelet Vol. 9.2 fl (6.2-12.0); Monocyte# 0.73 X10^3/uL; Monocyte% 9.3 % (0-10); NRBC Flagged by Analyzer 0 % (0-5); Neutrophil # 6.18 X10^3/uL (2.7-7.7); Neutrophil % 78.3 % (47-70); Platelet Count 250 K/mm3 (150-450); RBC Distribution Width SD 45.2 fl (35.1-43.9); Red Blood Count 3.94 M/mm3 (4.6-6.2); White Blood Count 7.9 K/mm3 (4.4-11.0)
[2019-05-06 09:57] LABS: Anion Gap 4 (5-15); BUN 25 mg/dL (7-18); BUN/Creat Ratio 29.8 RATIO (10-20); Calcium,Total 8.9 mg/dL (8.5-10.1); Chloride 110 mmol/L (98-107); Creatinine, Serum 0.84 mg/dL (0.70-1.30); EST Glomerular Filtration Rate 93 mL/min (>60); Est Glom Filt Rate - Afr Amer 112 mL/min (>60); Estimated Creatinine Clearance 66.39 ml/min; Glucose 98 mg/dL (74-106); Magnesium 2.3 mg/dL (1.6-2.6); Potassium 3.9 mmol/L (3.5-5.1); Sodium Level 146 mmol/L (136-145)
[2019-05-06 11:21] VITALS: BP 118/60; PULSE 63; RESP 16; TEMP 36.8; O2SAT 98
[2019-05-06 11:24] VITALS: PULSE 63
[2019-05-06] MEDS: Metoprolol(XL)Succ 50 MG Tablet PO (11:24)
[2019-05-06] MEDS: Enoxaparin 40 MG/0.4 ML Syringe SC (11:24)
[2019-05-06] MEDS: Aspirin 81 MG TAB.CHEW PO (11:24)
[2019-05-06] MEDS: RisperiDONE 0.5 MG Tablet PO (11:27)
--- NOTE | 2019-05-06 11:36 | PCM.TXEXTCAR ---
- Diet 05/04/19 10:37 Diet: Regular Diet Food consistency:: Regular Liquid Consistency:: Regular/Thin Is pt able to select menu?: No - Routine Orders/Code Status Code Status: DNRCC - Wound(s) L upper forehead Wound Type: Abrasion Bilat LE Wound Type: Abrasion LUE Wound Type: Abrasion R forearm/hand Wound Type: Abrasion - Therapies Weight Bearing: Non weight bearing - FOR 2 WEEKS Physical Therapy: Eval and Treat Occupational Therapy: Eval and Treat - Allergies/Procedures Done in Hospital Allergies/Adverse Reactions: Allergies No Known Allergies Allergy (Verified 05/03/19 16:51) - Type of Care/Length of Stay Estimated LOS: More Than 30 Days Type of Care Needed: Intermediate Rehab Potential: Fair Prognosis: Fair - Additional Orders/Day of Discharge Day of Discharge: 05/06/19 - Dietary and Speech Recommendations Dietitian Recommendations/Changes: Continue regular diet but, suggest [employer] DEVELOPER consult to evaluate need for possible texture/consistency modification of food/beverage. Continue ensure enlive on medpass as tolerated. - Follow Up Care Primary Care Physician: Ericka Person MD [Primary Care Provider] - Please follow up with your Primary Care Physician in: IN 1 WEEK Please Follow Up With: Toña Viveros DO When: IN 2 WEEKS
--- NOTE | 2019-05-06 11:38 | PCM.DC.SUM ---
Discharge Date and Diagnosis - Problem List Patient Problems: Active and Suspected Problems (This Medical Record has been edited. Action required.) Hip fracture (Acute) Nondisplaced intertrochanteric fracture of left femur, initial encounter for closed fracture (Acute) Date of Admission: 05/03/19 Date of Discharge: 05/06/19 - Primary Discharge Diagnosis Active and Suspected Problems (This Medical Record has been edited. Action required.) Hip fracture (Acute) Nondisplaced intertrochanteric fracture of left femur, initial encounter for closed fracture (Acute) Hospital Course and Treatment Imaging Results: Clinical Impression(s) from Imaging Studies Chest X-Ray 05/03/19 17:02 IMPRESSION: Cardiomegaly with hyperexpansion and diffuse interstitial pattern. No acute finding. Electronically Signed: Jeffrey Wright MD at 18:06 EST , Service support , Hip/Pelvis X-Ray 05/03/19 17:03 IMPRESSION: Osteopenia with fracture through the base of the greater trochanter of the left hip adjacent to the left total hip arthroplasty. Electronically Signed: Jeffrey Wright MD at 18:10 EST , Service support , Lower Extremity CT 05/03/19 20:36 IMPRESSION: There is a left total hip prosthesis. An intratrochanteric hip fracture is visualized at this level without significant displacement of the fracture fragments Lucency surrounds the acetabular component of the left hip arthroplasty Atherosclerotic vascular disease Individualized dose optimization techniques were used for this CT. at 2301 Reported and signed by: Vicky Rodriguez DO Electronically Signed: Vicky Rodriguez DO at 22:59 EST Tel , Service support , Operations: None Summary of Care Provided: Patient is an 84-year-old gentleman resident of an assisted living care facility admitted with a fall found to have a left hip intertrochanteric fracture 1. Left hip intratrochanteric fracture ~Patient admitted to regular nursing floor managed with pain meds immobilization with consultation placed to orthopedic surgery. Patient was seen by Dr. Viveros; her recommendation is to manage patient conservatively with nonweightbearing for 2 weeks. Consult subsequently placed to case management/health care social worker to assist with disposition. Patient was transferred to long-term facility once insurance precertification was obtained. 2. 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 Coronary artery disease ?With previous CABG 4. Peripheral arterial disease with carotid artery disease Status post carotid endarterectomy 5. Hypertension ~ blood pressure controlled, home medications continued with dose adjustment as needed 6. Alzheimer's dementia With behavioral disturbances patient did receive Haldol during the night 7. DVT prophylaxis ~ on enoxaparin Patient Problems: Active and Suspected Problems (This Medical Record has been edited. Action required.) Hip fracture (Acute) Nondisplaced intertrochanteric fracture of left femur, initial encounter for closed fracture (Acute) Objective: GENERAL: In no apparent distress HEENT: Atraumatic; EYES; Anicteric, Normal Conjunctiva NECK; supple, normal thyroid, RESPIRATORY: Diminished to auscultation CARDIOVASCULAR: Regular S1 S2, GI: soft, normoactive bowel sounds, : No Renal angle tenderness; EXTREMITIES: No edema, no clubbing, MUSCULOSKELETAL: no muscle waisting NEURO: Awake; no lateralizing signs. SKIN: No Rash PSYCH; Flat affect - Physical Exam Vitals/I&O's: Vital Signs Temp Pulse Resp BP Pulse Ox 98.2 F 63 16 118/60 98 05/06/19 11:21 05/06/19 11:24 05/06/19 11:21 05/06/19 11:21 05/06/19 11:21 Oxygen Delivery Method Room Air Weight: 73 kg Body Mass Index (BMI) 20.4 Intake and Output for Last 24 Hours 05/04/19 05/05/19 05/06/19 23:59 23:59 23:59 Intake Total 4. / 2063.17 220 / 220 Output Total 1075 / 1075 450 / 450 Balance 989.17 / 989.17 -230 / -230 Laboratory Results 05/06/19 09:03: WBC 7.9, RBC 3.94 L, Hgb 12.0 L, Hct 37.6 L, MCV 95.4 H, MCH 30.5, MCHC 31.9 L, RDW Std Deviation 45.2 H, RDW Coeff of Calixto 13.0, Plt Count 250, MPV 9.2, Immature Gran % (Auto) 0.400, Neut % (Auto) 78.3 H, Lymph % (Auto) 10.0 L, Hudson % (Auto) 9.3, Eos % (Auto) 1.6, Baso % (Auto) 0.4, Absolute Neuts (auto) 6.2, Absolute Lymphs (auto) 0.79 L, Nucleated RBC % 0 05/06/19 09:03: Sodium 146 H, Potassium 3.9, Chloride 110 H, Carbon Dioxide 32.0, Anion Gap 4 L, BUN 25 H, Creatinine 0.84, Estim Creat Clear Calc 66.39, Est GFR (MDRD) Af Amer 112, Est GFR (MDRD) Non-Af 93, BUN/Creatinine Ratio 29.8 H, Glucose 98, Calcium 8.9, Magnesium 2.3 Current Medications Acetaminophen (Tylenol) 1,000 mg PO TID [facility] Last Admin: 05/06/19 05:49 Dose: 1,000 mg Documented by: Albuterol/Ipratropium (Duoneb) 3 ml INHALATION Q4HWA.RT [facility] Last Admin: 05/06/19 07:45 Dose: Not Given Documented by: [facility] Admin: 05/06/19 11:24 Dose: 81 mg Documented by: Divalproex Sodium (Depakote Sprinkles) 250 mg PO TID [facility] Last Admin: 05/06/19 05:49 Dose: 250 mg Documented by: Enoxaparin Sodium (Lovenox) 40 mg SC DAILY [facility] Last Admin: 05/06/19 11:24 Dose: 40 mg Documented by: Sodium Chloride () 250 mls @ 15 mls/hr IV .[id number] PRN PRN Reason: Saline Flush Lorazepam (Ativan) 0.5 mg PO Q8H PRN PRN PRN Reason: ANXIETY Last Admin: 05/06/19 01:03 Dose: 0.5 mg Documented by: Melatonin (Melatonin) 3 mg PO QHS PRN PRN PRN Reason: INSOMNIA Metoprolol Succinate (Toprol Xl (Beta Vishal)) 50 mg PO DAILY [facility] Last Admin: 05/06/19 11:24 Dose: 50 mg Documented by: Morphine Sulfate () 2 mg IV Q3H PRN PRN PRN Reason: Pain Score 6-10/10 Nutritional Formula (Lactose Free) (Ensure Enlive) 120 ml PO 4X/DAY [facility] Last Admin: 05/06/19 11:27 Dose: 120 ml Documented by: Olanzapine (Zyprexa Zydis) 5 mg PO QHS [facility] Last Admin: 05/05/19 21:02 Dose: 5 mg Documented by: Polyethylene Glycol (Miralax) 17 gm PO BID PRN PRN PRN Reason: Constipation Risperidone (Risperdal) 0.5 mg PO BID [facility] Last Admin: 05/06/19 11:27 Dose: 0.5 mg Documented by: Sodium Chloride () 10 - 40 ml IV UD PRN PRN Reason: SALINE FLUSH Last Admin: 05/04/19 10:04 Dose: 10 ml Documented by: Discharge Diet: No Restrictions Home Medications: Medications to take at Discharge Aspirin 81 mg PO DAILY 04/29/19 Divalproex Sprinkles [Depakote Sprinkles] 250 mg PO TID 04/29/19 Melatonin [Melatin] 6 mg PO QHS 04/29/19 Olanzapine 1 tab PO QHS 04/29/19 Acetaminophen [Tylenol] 650 mg PO Q4H PRN 04/30/19 Metoprolol(XL)Succ [Toprol Xl (Beta Vishal)] 50 mg PO DAILY 04/30/19 Hydrochlorothiazide [Hctz] 25 mg PO DAILY 05/03/19 Polyethylene Glycol 3350 [Miralax] 17 gm PO BID PRN 05/03/19 Risperidone [Risperdal] 0.5 mg PO BID 05/03/19 Acetaminophen [Tylenol] 1,000 mg PO TID tab 05/06/19 Enoxaparin [Lovenox] 40 mg SUBCUT DAILY #30 syringe 05/06/19 Ensure Enlive 120 ml PO 4X/DAY liquid 05/06/19 Ipratropium/Albuterol Sulfate [Duoneb] 3 ml INHALATION Q4HWA.RT ampul.neb 05/06/19 Lorazepam 0.5 mg PO Q8H PRN 2 Days #6 tab 05/06/19 Following Prescrptions Were Given to Patient: Lorazepam 0.5 mg PO Q8H PRN 2 Days #6 tab PRN Reason: Anxiety Prescription Printed Enoxaparin [Lovenox] 40 mg SUBCUT DAILY #30 syringe Prescription Printed Primary Care Physician: Ericka Person MD [Primary Care Provider] - Please follow up with your Primary Care Physician in: IN 1 WEEK Please Follow Up With: Toña Viveros DO When: IN 2 WEEKS Disposition: Longterm facility Minutes spent on discharge:: 35 Patient Condition:: Stable Medical Necessity - Tobacco Use Smoking Status: Former smoker Meaningful Use Info Meaningful Use Diagnoses (Choose all that apply): None applicable Code Visit Inpatient E&M: 27017 Disch Hosp
--- NOTE | 2019-05-06 12:05 | CASEMGMT ---
Social Work Note JERRY received call from Patricia at [facility] stating pre-cert has been obtained and pt is able to discharge today. JERRY updated physician. JERRY faxed completed discharge paperwork to [facility] including transfer to extended care facility, signed medication list and any scripts. Original in SNF folder and copy on pt's chart. JERRY completed [facility] in [facility]. Original in SNF folder and copy on pt's chart. JERRY placed a call to [facility] and arranged transportation via cot for 1:45pm. Transportation form completed and placed on SNF folder and copy on pt's chart. JERRY placed a call to Patricia at [facility] and left message regarding transportation time. JERRY placed a call to pt's daughter Rachel and updated her that insurance approval has been obtained and pt will discharge to [facility] today with transport time at 1:45pm. Rachel states understanding. RN updated on transportation time. Plan: Discharge to [facility] skilled today with [facility] transporting via cot at 1:45pm Shirley Mejia MSW, [employer] OFFICER
== END 2019-05-06 14:16 | disposition skilled nursing facility (03) | DRG 536 ==
LOC: ED 17:29 → MS3 20:14
PROVIDERS: Admitting Provider Internal Medicine; Emergency Provider Emergency Medicine; Family Provider Family Medicine; PCP Family Medicine; Referring Provider Internal Medicine; Visit Provider Internal Medicine
DX: S72.145A Nondisplaced intertrochanteric fracture of left femur, initial encounter for closed fracture (principal); F02.81 Dementia in other diseases classified elsewhere, unspecified severity, with behavioral disturbance; M97.02XA Periprosthetic fracture around internal prosthetic left hip joint, initial encounter; W19.XXXA Unspecified fall, initial encounter; Y92.099 Unspecified place in other non-institutional residence as the place of occurrence of the external cause; N28.9 Disorder of kidney and ureter, unspecified; I25.10 Atherosclerotic heart disease of native coronary artery without angina pectoris; Z95.1 Presence of aortocoronary bypass graft; G30.9 Alzheimer's disease, unspecified; Z86.73 Personal history of transient ischemic attack (TIA), and cerebral infarction without residual deficits; I73.9 Peripheral vascular disease, unspecified; Z87.891 Personal history of nicotine dependence
CPT/HCPCS: 36415; 71045; 73502; 73700; 80048; 80053; 82962; 83735; 84100; 85025; 85610; 85730; 86850; 86900; 86901; 93005; 94640; 97162; 97166; 97530; 97802; 99251; 99285; J7030; J7120; A4216; G0463; J2405